=== PATIENT | male | born 1950 | race Caucasian/White ===

== ENCOUNTER 2017-07-26 08:49 | Emergency (ER) | payer MEDICARE, BC, MEDICAID ==
[2017-07-26 08:59] VITALS: BP 114/83
--- NOTE | 2017-07-26 09:30 | EDM.PDOC ---
ED HPI GENERAL MEDICAL PROBLEM - General Chief Complaint: General Stated Complaint: [id number] HAD SURGERY CANT GET DRAINING TO STOP Time Seen by Provider: 07/26/17 09:15 Source of Information: Reports: Patient History Limitations: Reports: No Limitations - History of Present Illness INITIAL COMMENTS - FREE TEXT/NARRATIVE: Patient presents to the ER with c/o moderate drainage from incision site of recent surgery. He states he talked to Dr. Moeller's nurse and was told to continue doing what he has been doing. He states the procedure was completed 9 days ago. He is to see Dr. Moeller on Aug 06. He states he has been having some aching down the leg as well. Denies fever or chills. The drainage has been clear /bloody. Onset: Gradual Onset Date: 07/18/17 Location: Reports: Lower Extremity, Left Quality: Reports: Pressure Severity: Mild Improves with: Reports: None Worsens with: Reports: None Associated Symptoms: Denies: Fever/Chills, Loss of Appetite, Malaise, Nausea/ Vomiting, Shortness of Breath Left Groin Pain Score (Numeric/FACES): 8 - Related Data Allergies Allergy/AdvReac Type Severity Reaction Status Date / Time No Known Allergies Allergy Verified 07/26/17 08:53 Home Meds: Home Meds Aspirin [Adult Low Dose Aspirin EC] 81 mg PO DAILY 05/28/17 [History] Hydrochlorothiazide 25 mg PO DAILY 05/28/17 [History] Multivit-Min/Iron Fum/Folic AC [Zkwye-Yrrgwcn-Qbpqunfd Tablet] 1 tab PO DAILY [History] Simvastatin [Zocor] 20 mg PO BEDTIME 05/28/17 [History] Testosterone [Androgel] 2 pump TOP DAILY 05/28/17 [History] amLODIPine [Norvasc] 10 mg PO DAILY 05/28/17 [History] Potassium 1 tab PO DAILY 07/26/17 [History] Past Medical History HEENT History: Reports: None Cardiovascular History: Reports: High Cholesterol, Hypertension Respiratory History: Reports: None Gastrointestinal History: Reports: None Neurological History: Reports: None Psychiatric History: Reports: None Endocrine/Metabolic History: Reports: None Hematologic History: Reports: None Immunologic History: Reports: None Dermatologic History: Reports: None - Infectious Disease History Infectious Disease History: Reports: None - Past Surgical History HEENT Surgical History: Reports: Cataract Surgery GI Surgical History: Reports: None Other Musculoskeletal Surgeries/Procedures:: knee surgery, hip surgery Dermatological Surgical History: Reports: None Social & Family History - Tobacco Use Smoking Status *Q: Former Smoker Used Tobacco, but Quit: Yes Month Tobacco Last Used: 2014 - Caffeine Use Caffeine Use: Reports: Coffee - Alcohol Use Days Per Week of Alcohol Use: 7 Number of Drinks Per Day: 3 Total Drinks Per Week: 21 - Recreational Drug Use Recreational Drug Use: No ED ROS GENERAL - Review of Systems Review Of Systems: ROS reveals no pertinent complaints other than HPI. ED EXAM, GENERAL - Physical Exam Exam: See Below Exam Limited By: No Limitations General Appearance: Alert, WD/WN, No Apparent Distress Respiratory/Chest: No Respiratory Distress, Lungs Clear, Normal Breath Sounds, No Accessory Muscle Use, Chest Non-Tender Cardiovascular: Normal Peripheral Pulses, Regular Rate, Rhythm, No Edema GI/Abdominal: Normal Bowel Sounds, Soft, Non-Tender Back Exam: Normal Inspection, Full Range of Motion Extremities: Leg Pain, Increased Warmth, Redness, Other (Drainage from incision wound from procedure 9 days ago. Drainage is Seroussanguinous. ) Neurological: Alert, Oriented Psychiatric: Normal Affect, Normal Mood Skin Exam: Warm, Dry, Erythema, Increased Warmth Lymphatic: No Adenopathy Course - Vital Signs Last Recorded V/S: Last Vital Signs Temp 98.2 F 07/26/17 08:58 Pulse 120 H 07/26/17 08:58 Resp 16 07/26/17 08:58 BP 114/83 07/26/17 08:58 Pulse Ox 98 07/26/17 08:58 - Orders/Labs/Meds Orders: Active Orders 24 hr Category Date Time Status CULTURE WOUND [RM] Stat Lab 07/26/17 09:23 Received Departure - Departure Time of Disposition: 09:55 Disposition: Home, Self-Care 01 Condition: Good Clinical Impression: Postoperative wound infection Qualifiers: Encounter type: initial encounter Qualified Code(s): T81.4XXA - Infection following a procedure, initial encounter Cellulitis Qualifiers: Site of cellulitis: extremity Site of cellulitis of extremity: lower extremity Laterality: left Qualified Code(s): L03.116 - Cellulitis of left lower limb - Discharge Information Instructions: Wound Infection, Ovgp-[id number], Cellulitis, Adult, Fiqe-oy-Jfov Forms: ED Department Discharge Additional Instructions: Cephalexin as prescribed Call [facility], Dr. Moeller's office to make an appointment for the morning of 07/27. Tell them Dr. Moeller has requested to see you. Keep clean and dry - My Orders Last 24 Hours: My Active Orders 07/26/17 09:23 CULTURE WOUND [RM] Stat - Assessment/Plan Last 24 Hours: My Active Orders 07/26/17 09:23 CULTURE WOUND [RM] Stat
== END 2017-07-26 10:10 | disposition home or self-care (01) ==
LOC: DL.ED 08:49
DX: T81.4XXA Infection following a procedure, initial encounter (principal); L03.116 Cellulitis of left lower limb; E78.00 Pure hypercholesterolemia, unspecified; I10 Essential (primary) hypertension; Z79.82 Long term (current) use of aspirin; Z79.899 Other long term (current) drug therapy; Z98.49 Cataract extraction status, unspecified eye; Z87.891 Personal history of nicotine dependence
CPT/HCPCS: 87070; 87077; 87186; 99283

== ENCOUNTER 2017-08-01 11:55 | Inpatient (IN) | payer MEDICARE, BC, MEDICAID ==
[2017-08-01] MEDS ORDERED: Ondansetron 4 MG Tab.DIS PO PRN (13:52)
[2017-08-01] MEDS ORDERED: Magnesium Hydroxide 400 MG/5 ML Susp 30 ML Cup PO PRN (13:52)
[2017-08-01] MEDS ORDERED: Morphine 2 MG/ML Syringe IVPUSH PRN (13:52)
[2017-08-01] MEDS ORDERED: Acetaminophen/oxyCODONE 325-5 MG Tab PO PRN (13:57)
[2017-08-01] MEDS: Acetaminophen/oxyCODONE 325-5 MG Tab PO PRN ×2 (14:59→21:28)
[2017-08-01] MEDS: ceFAZolin 2 GM in Premix Bag 1 BAG IV SCH ×2 (14:59→21:29)
--- NOTE | 2017-08-01 15:27 | CR ---
CLINICAL HISTORY: 67-year-old male with left ankle pain. INTERPRETATION: Soft tissue swelling medially with discretely demonstrated smoothly corticated os sub tibiale. Small ankle joint effusion and spurs at the margins of the tibiotalar joint. Large heel spur at the insertion plantar aponeurosis base of the os calcis. No sign of acute or healing fracture/dislocation left ankle.
--- NOTE | 2017-08-01 20:39 | HP ---
CHIEF COMPLAINT: Infected left groin wound, requiring wound VAC, wound dressing, and continued IV antibiotics; requiring admission to the swing-bed. HISTORY OF PRESENTING ILLNESS: Mr. Altagracia Salgado is a 67-year-old male with medical history significant for hypertension, hyperlipidemia, history of total hip arthroplasty back in 2014, and a history of severe peripheral arterial disease requiring left common femoral endarterectomy with patch repair on 07/17/2017. The patient was doing well up until early part of July, where he noticed increased swelling, redness, and bloody discharge from the left thigh from the postsurgical wound, which got worse with movement and walking. He was re-evaluated by Surgery and was actually transferred from [facility] to the Surgery and was noted to have wound infection and then the patient was taken to the OR on 07/27/2017, where he underwent incision and drainage and excisional debridement and irrigation of a left thigh groin wound with wound VAC placement. Surgical findings were infected hematoma with a sinus tracking all the way up to the upper corner of the femoral endarterectomy wound. Surgical cultures grew Staphylococcus aureus, which was methicillin-susceptible and was consulted by Infectious Disease. The patient was placed on a PICC line and continued with IV Zosyn, later changed to cefazolin. ID recommendation was to continue with IV cefazolin for 4 to 6 weeks from 07/27/2017, requiring swing-bed placement. At this time, the patient complains of mild pain at the surgical site which is the left thigh, only 1-2/10 in intensity, which is dull in nature, but most of his pain is on the medial aspect of the left ankle around the medial malleolus; he grades the pain as 6/10 in intensity, which is sharp in nature, aggravated on movement and palpation, relieved partially with pain medication, nonradiating type of pain, not associated with any nausea or vomiting. Denies any chest pains. No shortness of breath. No abdominal pain. The patient claims that this swelling was evaluated by doctors at [facility] and they suggested to continue on IV antibiotics. He denied any similar complaints in the past. The patient denied any history of chest pains on exertion. No history of dyspnea on exertion. No history of orthopnea or paroxysmal nocturnal dyspnea. The patient denied any history of hematemesis, hematochezia, or melenic stools; normal bowel and bladder habits otherwise. The patient has good functional status. REVIEW OF SYSTEMS: A complete review of system including skin, ear, nose, and throat, cardiovascular system, respiratory system, gastrointestinal system, genitourinary system, hematology, oncology, neurology, allergy, immunology, constitutional were all evaluated and were negative except for the above-said notes. PAST MEDICAL HISTORY: Significant for hypertension; hyperlipidemia; prediabetes; peripheral arterial disease, status post left thigh femoral endarterectomy, complicated with wound infection with hematoma; status post total hip arthroplasty on the right side. PAST SURGICAL HISTORY: Significant for total knee replacement on the right; total hip replacement on the right; cataract removal bilaterally; ganglion cyst removal of the right wrist; vascular endarterectomy and femoral embolectomy of the left next. FAMILY HISTORY: Significant for heart disease in his mother, father, and sister and diabetes in his daughter. SOCIAL HISTORY: The patient has a history of smoking in the past, but quit smoking 2 years back. Continues to use alcohol occasionally and most of the nights. ALLERGIES: No known drug allergies. MEDICATIONS: 1. Norvasc 10 mg once a day. 2. Aspirin 81 mg daily. 3. Cefazolin IV q.8 hourly 2 g. 4. Hydrochlorothiazide 25 mg daily. 5. Percocet 5/325 mg every 6 hours as needed for pain. 6. Simvastatin 20 mg daily. 7. Testosterone gel, topical patch. PHYSICAL EXAMINATION: Vital Signs: Temperature of 98, pulse of 85, blood pressure 134/69, respiratory rate of 20, saturating at 100% on room air. General Appearance: The patient is well oriented to time, place, and person. Follows commands spontaneously. Cardiovascular System: S1 and S2 heard with normal intensity. No gallops. Respiratory: Clear to auscultation bilaterally. No wheeze. No crepitations. Abdomen: Soft. Bowel sounds positive. Nontender. No rigidity. Extremities: No edema in bilateral lower extremity, but noted to have swelling erythema and tenderness to the left medial malleolus. Tender to palpation. Pulses felt well. Capillary refill well. Wound VAC noted on the left groin side; no active secretions noted, mild tenderness. Neurology: No gross focal neurological deficit. LABORATORY DATA: As reviewed from [facility] shows sodium 134, potassium 4, chloride 102, bicarb 24.5, glucose 126, creatinine 1, calcium 9.6. WBC 9.28, hemoglobin 12.7, hematocrit 37.4, platelet count 322. ASSESSMENT: 1. Infected left thigh hematoma with associated infections as a complication of left common femoral artery endarterectomy patch done on 07/27/2017. Currently on wound VAC and IV antibiotics, to be continued for next 4 to 6 weeks with IV cefazolin. 2. Left ankle pain, etiology not clear. 3. Hypertension. 4. Hyperlipidemia. 5. Alcohol use. 6. Peripheral arterial disease. PLAN: 1. Wound infection: The patient has a wound infection as a result of infected hematoma, resulting from complication of his left common femoral artery endarterectomy patch. He is status post irrigation and debridement and wound VAC placement. Continue with the wound VAC. Continue with wound cares. Continue with IV antibiotics as recommended by the Infectious Disease team. He is currently on IV cefazolin 2 g IV q.8 hourly and he would need at least 4 to 6 weeks of IV antibiotics with weekly monitoring from Infectious Disease team. Closely follow. 2. Hypertension: He is currently on hydrochlorothiazide; continue the same. His blood pressure seems to be in acceptable range. Try to avoid any hypotensive episodes. 3. Dyslipidemia: He is currently on simvastatin. Continue the same. 4. DVT prophylaxis: We will have him on Lovenox for DVT prophylaxis. 5. Reviewed the labs and medications. Reviewed the charts obtained from [facility]. 6. Code status: The patient wants to be full code. [facility] /[id number]
[2017-08-01] MEDS: Heparin Sodium 5,000 Units/ML Vial SUBCUT SCH (21:01)
[2017-08-01] MEDS: Simvastatin 10 MG Tab PO SCH (21:02)
[2017-08-01] MEDS: Zolpidem 5 MG Tab PO PRN (21:02)
[2017-08-02] MEDS: ceFAZolin 2 GM in Premix Bag 1 BAG IV SCH ×3 (06:08→22:05)
[2017-08-02] MEDS ORDERED: Acetaminophen 325 MG Tab PO ONE (08:04)
[2017-08-02] MEDS: Hydrochlorothiazide 25 MG Tab PO SCH (09:20)
[2017-08-02] MEDS: amLODIPine 5 MG Tab PO SCH (09:21)
[2017-08-02] MEDS: Multivitamins, Therapeutic with Minerals Tab PO SCH (09:22)
[2017-08-02] MEDS: Aspirin 81 MG Tab.EC PO SCH (09:22)
[2017-08-02] MEDS: Heparin Sodium 5,000 Units/ML Vial SUBCUT SCH ×2 (09:23→20:25)
[2017-08-02] MEDS: oxyCODONE 5 MG Tab PO PRN ×2 (12:17→18:44)
--- NOTE | 2017-08-02 16:04 | PN ---
DATE: 08/02/2017 SUBJECTIVE: Phil is a 67-year-old gentleman who had angiography performed earlier this month. The surgeon was unable to enter the left femoral artery because of calcified atherosclerotic material. A direct left endarterectomy was then performed. Phil developed a hematoma at the site. On the day after discharge, he noted drainage from the surgical site and then a wound infection overlying the surgical site. He returned to see the vascular surgeon. The area was sharply debrided and a wound VAC was placed. He was started on IV antibiotics and admitted to swing bed for ongoing management. Over the last 2 days, however, he has developed bilateral swelling of the left ankle with redness and tenderness. Dr. Torres did do a uric acid yesterday and this was unremarkable at 4.8. Additional labs were ordered today and showed a white count of 8000 with 79% neutrophils, 2% bands, 11% lymphocytes. Sed rate was more than 100 and CRP was 14.7. Two new sets of blood cultures were drawn. He has been febrile during this admission. Temperatures over the last 24 hours have been as high as 100.9 and today have been 99.3. PHYSICAL EXAMINATION: General: He is seen in bed. He is in no distress. Vital Signs: Blood pressure 116/78, pulse 80, respiratory rate 14, oxygen saturation 97% on room air, temperature is 99.3, and T-max overnight was 100.3. HEENT: Unremarkable. ENT was clear. Chest: Clear but diminished bilateral breath sounds. Heart: Showed regular rate and rhythm. Abdomen: Soft and benign. Extremities: Showed the calves to be soft and nontender. Examination of the left lower extremity showed bilateral malleolar swelling with overlying redness and tenderness. The calves were soft and nontender. PLAN: The additional labs were ordered including white count with a manual differential, CRP, and a sedimentation rate. Two new sets of blood cultures were drawn. Admission x-rays of the left ankle were unremarkable. We considered an MRI but the inflammation in the ankle is obvious and will wait on an MRI for now. I did speak to the vascular surgeon this morning, but he had nothing to add and nothing to say about the new problem of left ankle. I also with Dr. Fregoso of Infectious Diseases, who has also been following Phil's case. We agreed to see if a tap of the joint could be done. Dr. Ali Wang was consulted and she was able to easily perform an aspiration of the joint. The sample was sent for culture and cell/crystal examination. Phil is scheduled to see Dr. Fregoso next week by Telemedicine. [facility] /[id number] MTDD
--- NOTE | 2017-08-02 17:24 | PCM.CONSN ---
- General Info Date of Service: 08/02/17 Subjective Update: 67 y/o male who had angiography performed earlier this month, subequently developed a wound at the surgical site which was debrided by vascular surgeon and is now on wound vac to the left upper leg. Currently admitted to swing bed for IV antibiotics. Has now developed left ankle pain and swelling. Reports he noticed this starting on Sunday and has progressively worsened. Reports it is very painful to walk on the left ankle, also very tender to touch. - Patient Data Vitals - Most Recent: Last Vital Signs Temp 37.7 C 08/02/17 15:49 Pulse 78 08/02/17 15:49 Resp 20 08/02/17 15:49 BP 121/70 08/02/17 15:49 Pulse Ox 97 08/02/17 15:49 Weight - Most Recent: 84.731 kg I&O - Last 24 Hours: Intake & Output 08/02/17 08/02/17 08/02/17 06:59 14:59 22:59 Intake Total 50 977 Output Total 500 600 Balance -450 377 Lab Results Last 24 Hours: Laboratory Results - last 24 hr 08/02/17 08/02/17 Range/Units 12:20 12:20 WBC 8.0 (5.0-10.0) 10^3/uL Neutrophils % (Manual) 79 % Band Neutrophils % 2 % Lymphocytes % (Manual) 11 % Monocytes % (Manual) 8 % ESR > 100 H (0-15) mm/hr C-Reactive Protein 14.7 H (0.0-1.3) mg/dL Antony Results Last 24 Hours: Microbiology 08/02/17 12:20 Anaerobic Blood Culture - Final Blood - Venous Med Orders - Current: Current Medications Acetaminophen (Tylenol) 650 mg PO Q4H PRN PRN Reason: Pain/Fever Amlodipine Besylate (Norvasc) 10 mg PO DAILY [facility] Last Admin: 08/02/17 09:21 Dose: 10 mg Aspirin (Halfprin) 81 mg PO DAILY [facility] Last Admin: 08/02/17 09:22 Dose: 81 mg Heparin Sodium (Porcine) (Heparin Sodium) 5,000 units SUBCUT Q12HR [facility] Last Admin: 08/02/17 09:23 Dose: 5,000 units Hydrochlorothiazide (Hydrochlorothiazide) 25 mg PO DAILY [facility] Last Admin: 08/02/17 09:20 Dose: 25 mg Cefazolin Sodium/Dextrose 2 gm (/ Premix) 50 mls @ 100 mls/hr IV Q8HR [facility] Last Infusion: 08/02/17 14:45 Dose: Infused Magnesium Hydroxide (Milk Of Magnesia) 30 ml PO Q12H PRN PRN Reason: Constipation Morphine Sulfate (Morphine) 2 mg IVPUSH Q2H PRN PRN Reason: Pain (severe 7-10) Multivitamins/Minerals (Vitamins And Minerals) 1 tab PO DAILY [facility] Last Admin: 08/02/17 09:22 Dose: 1 tab Non-Formulary Medication (Testosterone [Androgel]) 50 mg TOP DAILY [facility] Ondansetron HCl (Zofran Odt) 4 mg PO Q4H PRN PRN Reason: nausea, able to take PO Oxycodone HCl (Oxycodone) 5 mg PO Q6H PRN PRN Reason: Pain (moderate 4-6) Last Admin: 08/02/17 12:17 Dose: 5 mg Oxycodone HCl (Oxycodone) 10 mg PO Q6H PRN PRN Reason: Pain (severe 7-10) Senna/Docusate Sodium (Senna Plus) 1 tab PO BEDTIME PRN PRN Reason: Constipation Simvastatin (Zocor) 20 mg PO BEDTIME [facility] Last Admin: 08/01/17 21:02 Dose: 20 mg Sodium Chloride (Saline Flush) 10 ml IV ASDIRECTED PRN PRN Reason: keep vein open Zolpidem Tartrate (Ambien) 5 mg PO BEDTIME PRN PRN Reason: Sleep Last Admin: 08/01/17 21:02 Dose: 5 mg Discontinued Medications Acetaminophen (Tylenol) 650 mg PO NOW ONE Stop: 08/02/17 08:05 Last Admin: 08/02/17 08:30 Dose: 650 mg Oxycodone/Acetaminophen (Percocet 325-5 Mg) 1 tab PO Q6H PRN PRN Reason: Pain (moderate 4-6) Last Admin: 08/01/17 21:28 Dose: 1 tab Oxycodone/Acetaminophen (Percocet 325-5 Mg) 2 tab PO Q6H PRN PRN Reason: Pain (severe 7-10) - Exam General: Alert, Oriented, No Acute Distress Physical Findings Comments:: Left ankle with swelling present to the ankle joint, mainly at the medial and lateral malleolar areas with erythema present. Very tender to palpation to these areas. Pt is able to actively flex and extend but pain with any type of inversion or eversion motion at the level of the ankle joint. With palpation the entire ankle joint is inflammed. Consult PN Assessment/Plan Procedures: Procedures CARDIOVASCULAR STRESS TEST (05/29/17) CULTURE OTHR SPECIMN AEROBIC (07/26/17) EMERGENCY DEPT VISIT (07/26/17) HT MUSCLE IMAGE SPECT MULT (05/29/17) MRI JNT OF LWR EXTRE W/O DYE (01/27/15) (1) Ankle joint pain SNOMED Code(s): 236885433 Code(s): M25.579 - PAIN IN UNSPECIFIED ANKLE AND JOINTS OF UNSPECIFIED FOOT Current Visit: Yes Problem List Initiated/Reviewed/Updated: Yes Plan: 67 y/o with left ankle pain and swelling with redness. UA from yesterday 4.8. WBC 8, ESR >100, CRP 14.7. xrays of left ankle negative. Today I did prep the left ankle with chlorhexadine prep, injected 2 cc's 1% lidocaine plain for anesthesia, once that was obtained I then used a 20 gauge needle and inserted into the left ankle joint, I then aspirated approx 2 cc's of bloody joint fluid from the left ankle. Due to blood in the specimen we could not evalute the fluid for cloudyness. Cultures were taken and specimen sent to lab. Will await results of the aspirate and go from there.
[2017-08-02] MEDS: Simvastatin 10 MG Tab PO SCH (20:23)
[2017-08-02] MEDS: Zolpidem 5 MG Tab PO PRN (20:24)
[2017-08-03] MEDS: ceFAZolin 2 GM in Premix Bag 1 BAG IV SCH ×3 (06:15→21:35)
[2017-08-03] MEDS: Sodium Chloride 0.9% 10 ML Syringe IV PRN ×2 (07:16→14:38)
[2017-08-03] MEDS: Multivitamins, Therapeutic with Minerals Tab PO SCH (10:00)
[2017-08-03] MEDS: amLODIPine 5 MG Tab PO SCH (10:00)
[2017-08-03] MEDS: Aspirin 81 MG Tab.EC PO SCH (10:00)
[2017-08-03] MEDS: Hydrochlorothiazide 25 MG Tab PO SCH (10:01)
[2017-08-03] MEDS: oxyCODONE 5 MG Tab PO PRN ×2 (10:18→21:34)
[2017-08-03] MEDS: Heparin Sodium 5,000 Units/ML Vial SUBCUT SCH ×2 (10:20→21:35)
[2017-08-03] MEDS: Acetaminophen 325 MG Tab PO PRN (15:15)
[2017-08-03] MEDS: Simvastatin 10 MG Tab PO SCH (21:34)
[2017-08-04] MEDS: ceFAZolin 2 GM in Premix Bag 1 BAG IV SCH ×3 (05:46→21:54)
[2017-08-04] MEDS: Aspirin 81 MG Tab.EC PO SCH (09:37)
[2017-08-04] MEDS: Hydrochlorothiazide 25 MG Tab PO SCH (09:38)
[2017-08-04] MEDS: Heparin Sodium 5,000 Units/ML Vial SUBCUT SCH ×2 (09:38→21:42)
[2017-08-04] MEDS: Multivitamins, Therapeutic with Minerals Tab PO SCH (09:39)
[2017-08-04] MEDS: amLODIPine 5 MG Tab PO SCH (09:39)
[2017-08-04] MEDS: oxyCODONE 5 MG Tab PO PRN ×2 (09:54→21:38)
[2017-08-04] MEDS: Acetaminophen 325 MG Tab PO PRN (09:55)
[2017-08-04] MEDS: Colchicine 0.6 MG Tab PO SCH ×3 (10:12→21:40)
[2017-08-04] MEDS: TESTOSTERONE TOP SCH (10:58)
--- NOTE | 2017-08-04 21:17 | PN ---
DATE: 08/04/2017 We have received the results on the synovial fluid that was obtained in by Dr. Wendy Wang on August 02. Fluid was sent for both culture and for synovial crystal analysis. The synovial fluid culture remains without growth for 2 days. The crystal report shows negatively birefringent needle shaped polarized crystals seen as leukocytic inclusions. These crystals resemble monosodium urate. I called and spoke with Dr. Laird, who is covering hospitalist this weekend to inform him that the report was back. I also sent a message via [employer] to Dr. Federico Fregoso, Infectious Disease, informing him of the results of both the culture and the synovial crystal analysis. Management will be directed by Dr. Laird for these findings. [facility] /[id number] MTDD
[2017-08-04] MEDS: Simvastatin 10 MG Tab PO SCH (21:40)
[2017-08-04] MEDS: Sodium Chloride 0.9% 10 ML Syringe IV PRN ×2 (21:56→22:30)
[2017-08-05] MEDS: ceFAZolin 2 GM in Premix Bag 1 BAG IV SCH ×3 (06:30→22:15)
[2017-08-05] MEDS: Sodium Chloride 0.9% 10 ML Syringe IV PRN ×3 (06:35→13:50)
[2017-08-05] MEDS: Colchicine 0.6 MG Tab PO SCH ×2 (09:25→21:03)
[2017-08-05] MEDS: Aspirin 81 MG Tab.EC PO SCH (09:26)
[2017-08-05] MEDS: amLODIPine 5 MG Tab PO SCH (09:26)
[2017-08-05] MEDS: Heparin Sodium 5,000 Units/ML Vial SUBCUT SCH ×2 (09:26→21:11)
[2017-08-05] MEDS: Hydrochlorothiazide 25 MG Tab PO SCH (09:26)
[2017-08-05] MEDS: TESTOSTERONE TOP SCH (09:28)
[2017-08-05] MEDS: Multivitamins, Therapeutic with Minerals Tab PO SCH (09:28)
[2017-08-05] MEDS: Acetaminophen 325 MG Tab PO PRN (09:29)
[2017-08-05] MEDS ORDERED: Menthol/Methyl Salicylate 85 GM Tube TOP PRN (17:12)
[2017-08-05] MEDS: oxyCODONE 5 MG Tab PO PRN (21:03)
[2017-08-05] MEDS: Simvastatin 10 MG Tab PO SCH (21:05)
[2017-08-05] MEDS: Zolpidem 5 MG Tab PO PRN (21:17)
[2017-08-06] MEDS: ceFAZolin 2 GM in Premix Bag 1 BAG IV SCH ×3 (05:54→21:45)
[2017-08-06] MEDS: Sodium Chloride 0.9% 10 ML Syringe IV PRN (05:55)
[2017-08-06] MEDS: amLODIPine 5 MG Tab PO SCH (08:59)
[2017-08-06] MEDS: Colchicine 0.6 MG Tab PO SCH ×2 (08:59→21:44)
[2017-08-06] MEDS: Heparin Sodium 5,000 Units/ML Vial SUBCUT SCH ×2 (08:59→21:45)
[2017-08-06] MEDS: Aspirin 81 MG Tab.EC PO SCH (08:59)
[2017-08-06] MEDS: Multivitamins, Therapeutic with Minerals Tab PO SCH (08:59)
[2017-08-06] MEDS: Hydrochlorothiazide 25 MG Tab PO SCH (08:59)
[2017-08-06] MEDS: TESTOSTERONE TOP SCH (09:00)
[2017-08-06] MEDS: Acetaminophen 325 MG Tab PO PRN ×2 (09:31→21:42)
[2017-08-06] MEDS: Simvastatin 10 MG Tab PO SCH (21:44)
[2017-08-06] MEDS: Zolpidem 5 MG Tab PO PRN (21:46)
[2017-08-07] MEDS: ceFAZolin 2 GM in Premix Bag 1 BAG IV SCH ×3 (05:58→22:13)
[2017-08-07] MEDS: Acetaminophen 325 MG Tab PO PRN ×2 (09:45→22:10)
[2017-08-07] MEDS: Aspirin 81 MG Tab.EC PO SCH (09:48)
[2017-08-07] MEDS: Colchicine 0.6 MG Tab PO SCH ×2 (09:48→22:09)
[2017-08-07] MEDS: Heparin Sodium 5,000 Units/ML Vial SUBCUT SCH ×2 (09:49→22:12)
[2017-08-07] MEDS: Hydrochlorothiazide 25 MG Tab PO SCH (09:49)
[2017-08-07] MEDS: amLODIPine 5 MG Tab PO SCH (09:49)
[2017-08-07] MEDS: Multivitamins, Therapeutic with Minerals Tab PO SCH (09:50)
[2017-08-07] MEDS: TESTOSTERONE TOP SCH (09:53)
[2017-08-07] MEDS: Sodium Chloride 0.9% 10 ML Syringe IV PRN ×2 (14:07→14:42)
[2017-08-07] MEDS: Zolpidem 5 MG Tab PO PRN (22:09)
[2017-08-07] MEDS: Simvastatin 10 MG Tab PO SCH (22:09)
[2017-08-08] MEDS: ceFAZolin 2 GM in Premix Bag 1 BAG IV SCH ×3 (06:19→21:27)
[2017-08-08] MEDS: Aspirin 81 MG Tab.EC PO SCH (08:37)
[2017-08-08] MEDS: Heparin Sodium 5,000 Units/ML Vial SUBCUT SCH ×2 (08:38→21:25)
[2017-08-08] MEDS: Hydrochlorothiazide 25 MG Tab PO SCH (08:38)
[2017-08-08] MEDS: amLODIPine 5 MG Tab PO SCH (08:39)
[2017-08-08] MEDS: TESTOSTERONE TOP SCH (08:40)
[2017-08-08] MEDS: Multivitamins, Therapeutic with Minerals Tab PO SCH (08:40)
[2017-08-08] MEDS: Colchicine 0.6 MG Tab PO SCH ×2 (08:41→21:24)
[2017-08-08] MEDS: Sodium Chloride 0.9% 10 ML Syringe IV PRN (14:54)
[2017-08-08] MEDS: Acetaminophen 325 MG Tab PO PRN ×2 (15:02→21:26)
[2017-08-08] MEDS: Simvastatin 10 MG Tab PO SCH (21:25)
[2017-08-08] MEDS: Zolpidem 5 MG Tab PO PRN (21:25)
[2017-08-09] MEDS: ceFAZolin 2 GM in Premix Bag 1 BAG IV SCH ×3 (06:56→23:35)
[2017-08-09] MEDS: amLODIPine 5 MG Tab PO SCH (08:45)
[2017-08-09] MEDS: Colchicine 0.6 MG Tab PO SCH ×2 (08:45→23:37)
[2017-08-09] MEDS: Acetaminophen 325 MG Tab PO PRN ×2 (08:47→23:46)
[2017-08-09] MEDS: Aspirin 81 MG Tab.EC PO SCH (08:47)
[2017-08-09] MEDS: Hydrochlorothiazide 25 MG Tab PO SCH (08:47)
[2017-08-09] MEDS: Multivitamins, Therapeutic with Minerals Tab PO SCH (08:47)
[2017-08-09] MEDS: Heparin Sodium 5,000 Units/ML Vial SUBCUT SCH ×2 (08:47→23:38)
[2017-08-09] MEDS: TESTOSTERONE TOP SCH (08:49)
--- NOTE | 2017-08-09 12:57 | PCM.PN ---
- General Info Date of Service: 08/09/17 Subjective Update: 67 y/o male who had angiography performed earlier this month, subequently developed a wound at the surgical site which was debrided by vascular surgeon and is now on wound vac to the left upper leg. He is being admitted to swing bed for IV antibiotics. Last week he developed left ankle and big toe pain and swelling. Ankle aspiration was consistent with gout. He was started on colchicine 0.6 mg twice a day. Today patient stated that his ankle and left big toe swelling are markedly better but are still somewhat swelling and tender when walking and wants to continue the colchicine. He is aware of the side effects of colchicine but he is requesting to continue on it. Patient denies fever, chills, nausea, vomiting, chest pain, shortness breath, headache, abdominal pain, diarrhea, urinary symptoms, any other symptoms or concern. He had bowel movement today and was normal. - Patient Data Vitals - Most Recent: Last Vital Signs Temp 37.2 C 08/09/17 08:57 Pulse 70 08/09/17 08:57 Resp 20 08/09/17 08:57 BP 107/58 L 08/09/17 08:57 Pulse Ox 96 08/09/17 08:57 Weight - Most Recent: 83.37 kg I&O - Last 24 Hours: Intake & Output 08/08/17 08/09/17 08/09/17 22:59 06:59 14:59 Intake Total 339 153 Balance 339 153 Med Orders - Current: Current Medications Acetaminophen (Tylenol) 650 mg PO Q4H PRN PRN Reason: Pain/Fever Last Admin: 08/09/17 08:47 Dose: 650 mg Amlodipine Besylate (Norvasc) 10 mg PO DAILY [facility] Last Admin: 08/09/17 08:45 Dose: 10 mg Aspirin (Halfprin) 81 mg PO DAILY [facility] Last Admin: 08/09/17 08:47 Dose: 81 mg Heparin Sodium (Porcine) (Heparin Sodium) 5,000 units SUBCUT Q12HR [facility] Last Admin: 08/09/17 08:47 Dose: 5,000 units Hydrochlorothiazide (Hydrochlorothiazide) 25 mg PO DAILY [facility] Last Admin: 08/09/17 08:47 Dose: 25 mg Cefazolin Sodium/Dextrose 2 gm (/ Premix) 50 mls @ 100 mls/hr IV Q8HR [facility] Last Admin: 08/09/17 06:56 Dose: 100 mls/hr Magnesium Hydroxide (Milk Of Magnesia) 30 ml PO Q12H PRN PRN Reason: Constipation Methyl Salicylate (Icy Hot Cream) 0 gm TOP TID PRN PRN Reason: Pain Morphine Sulfate (Morphine) 2 mg IVPUSH Q2H PRN PRN Reason: Pain (severe 7-10) Multivitamins/Minerals (Vitamins And Minerals) 1 tab PO DAILY [facility] Last Admin: 08/09/17 08:47 Dose: 1 tab Testosterone 1% Gel (50 Mg Own Med) 50 mg TOP DAILY [facility] Last Admin: 08/09/17 08:49 Dose: 50 mg Ondansetron HCl (Zofran Odt) 4 mg PO Q4H PRN PRN Reason: nausea, able to take PO Oxycodone HCl (Oxycodone) 5 mg PO Q6H PRN PRN Reason: Pain (moderate 4-6) Last Admin: 08/05/17 21:03 Dose: 5 mg Oxycodone HCl (Oxycodone) 10 mg PO Q6H PRN PRN Reason: Pain (severe 7-10) Last Admin: 08/04/17 21:38 Dose: 10 mg Senna/Docusate Sodium (Senna Plus) 1 tab PO BEDTIME PRN PRN Reason: Constipation Last Admin: 08/03/17 21:33 Dose: 1 tab Simvastatin (Zocor) 20 mg PO BEDTIME [facility] Last Admin: 08/08/17 21:25 Dose: 20 mg Sodium Chloride (Saline Flush) 10 ml IV ASDIRECTED PRN PRN Reason: keep vein open Last Admin: 08/08/17 14:54 Dose: 10 ml Zolpidem Tartrate (Ambien) 5 mg PO BEDTIME PRN PRN Reason: Sleep Last Admin: 08/08/17 21:25 Dose: 5 mg Discontinued Medications Acetaminophen (Tylenol) 650 mg PO NOW ONE Stop: 08/02/17 08:05 Last Admin: 08/02/17 08:30 Dose: 650 mg Colchicine (Colcrys) 0.6 mg PO BID [facility] Last Admin: 08/04/17 11:26 Dose: Not Given Colchicine (Colcrys) 0.6 mg PO BID [facility] Last Admin: 08/09/17 08:45 Dose: 0.6 mg Oxycodone/Acetaminophen (Percocet 325-5 Mg) 1 tab PO Q6H PRN PRN Reason: Pain (moderate 4-6) Last Admin: 08/01/17 21:28 Dose: 1 tab Oxycodone/Acetaminophen (Percocet 325-5 Mg) 2 tab PO Q6H PRN PRN Reason: Pain (severe 7-10) - Exam General: Alert, Oriented, Cooperative, No Acute Distress. No: Mild Distress, Moderate Distress, Severe Distress, Sedated, Lethargic, Obtunded HEENT: Pupils Equal, Pupils Reactive, EOMI, Mucous Membr. Moist/[place] Neck: Supple, Trachea Midline, No JVD Lungs: Clear to Auscultation, Normal Respiratory Effort Cardiovascular: Regular Rate, Regular Rhythm GI/Abdominal Exam: Normal Bowel Sounds, Soft, Non-Tender, No Organomegaly, No Distention, No Abnormal Bruit, No Mass. No: Distended, Guarding, Rigid, Rebound (Male) Exam: Deferred Back Exam: Normal Inspection, Full Range of Motion Extremities: Normal Inspection, Normal Range of Motion, Non-Tender, No Pedal Edema, Normal Capillary Refill Skin: Other (Left groin wound has wound VAC on it and I did not appreciate any erythema or swelling or any signs of infection of the skin.) Wound/Incisions: Healing Well Neurological: No New Focal Deficit Psy/Mental Status: Alert, Normal Affect, Normal Mood - Problem List Review Problem List Initiated/Reviewed/Updated: Yes - My Orders Last 24 Hours: My Active Orders 08/14/17 06:00 ALANINE AMINOTRANSFERASE,ALT [CHEM] WEEKLY CBC WITH AUTO DIFF [HEME] WEEKLY CREATININE W/GFR [CHEM] WEEKLY CRP [C-REACTIVE PROTEIN] [CHEM] WEEKLY ESR [SEDIMENTATION RATE MANUAL] [HEME] WEEKLY 08/21/17 06:00 ALANINE AMINOTRANSFERASE,ALT [CHEM] WEEKLY CBC WITH AUTO DIFF [HEME] WEEKLY CREATININE W/GFR [CHEM] WEEKLY CRP [C-REACTIVE PROTEIN] [CHEM] WEEKLY ESR [SEDIMENTATION RATE MANUAL] [HEME] WEEKLY - Plan Plan:: Assessment and plan Infected left thigh hematoma status post left common femoral artery endarterectomy patch on 07/27/17 Continue wound VAC care and IV cefazolin Continue to follow with ID recommendation Opiate for pain as per order Acute gout Continue colchicine 0.6 mg twice a day for other 2 days Essential hypertension Continue hydrochlorothiazide and amlodipine Dyslipidemia Continue simvastatin Heparin for DVT prophylaxis
[2017-08-09] MEDS: Sodium Chloride 0.9% 10 ML Syringe IV PRN ×2 (14:29→23:34)
[2017-08-09] MEDS: Simvastatin 10 MG Tab PO SCH (23:42)
[2017-08-10] MEDS: Sodium Chloride 0.9% 10 ML Syringe IV PRN ×5 (00:09→22:01)
[2017-08-10] MEDS: ceFAZolin 2 GM in Premix Bag 1 BAG IV SCH ×3 (06:00→22:01)
[2017-08-10] MEDS: Aspirin 81 MG Tab.EC PO SCH (08:21)
[2017-08-10] MEDS: Multivitamins, Therapeutic with Minerals Tab PO SCH (08:21)
[2017-08-10] MEDS: amLODIPine 5 MG Tab PO SCH (08:22)
[2017-08-10] MEDS: Heparin Sodium 5,000 Units/ML Vial SUBCUT SCH ×2 (08:22→21:00)
[2017-08-10] MEDS: Hydrochlorothiazide 25 MG Tab PO SCH (08:22)
[2017-08-10] MEDS: Colchicine 0.6 MG Tab PO SCH ×2 (08:22→21:01)
[2017-08-10] MEDS: Acetaminophen 325 MG Tab PO PRN ×3 (08:24→21:00)
[2017-08-10] MEDS: TESTOSTERONE TOP SCH (08:25)
[2017-08-10] MEDS: Simvastatin 10 MG Tab PO SCH (21:00)
[2017-08-10] MEDS: Zolpidem 5 MG Tab PO PRN (21:06)
[2017-08-11] MEDS: Sodium Chloride 0.9% 10 ML Syringe IV PRN ×5 (06:15→22:07)
[2017-08-11] MEDS: ceFAZolin 2 GM in Premix Bag 1 BAG IV SCH ×3 (06:15→22:08)
[2017-08-11] MEDS: Multivitamins, Therapeutic with Minerals Tab PO SCH (09:54)
[2017-08-11] MEDS: Heparin Sodium 5,000 Units/ML Vial SUBCUT SCH ×2 (09:54→21:05)
[2017-08-11] MEDS: Aspirin 81 MG Tab.EC PO SCH (09:54)
[2017-08-11] MEDS: amLODIPine 5 MG Tab PO SCH (09:55)
[2017-08-11] MEDS: Colchicine 0.6 MG Tab PO SCH (09:55)
[2017-08-11] MEDS: Hydrochlorothiazide 25 MG Tab PO SCH (09:55)
[2017-08-11] MEDS: Acetaminophen 325 MG Tab PO PRN ×2 (10:15→21:04)
[2017-08-11] MEDS: TESTOSTERONE TOP SCH (10:16)
[2017-08-11] MEDS: Allopurinol 300 MG Tab PO SCH (18:42)
[2017-08-11] MEDS: Zolpidem 5 MG Tab PO PRN (21:03)
[2017-08-11] MEDS: Simvastatin 10 MG Tab PO SCH (21:04)
[2017-08-12] MEDS: ceFAZolin 2 GM in Premix Bag 1 BAG IV SCH ×3 (05:44→21:16)
[2017-08-12] MEDS: Sodium Chloride 0.9% 10 ML Syringe IV PRN ×4 (05:48→21:17)
[2017-08-12] MEDS: Allopurinol 300 MG Tab PO SCH (08:25)
[2017-08-12] MEDS: Aspirin 81 MG Tab.EC PO SCH (09:23)
[2017-08-12] MEDS: Hydrochlorothiazide 25 MG Tab PO SCH (09:23)
[2017-08-12] MEDS: Multivitamins, Therapeutic with Minerals Tab PO SCH (09:23)
[2017-08-12] MEDS: Acetaminophen 325 MG Tab PO PRN (09:24)
[2017-08-12] MEDS: Heparin Sodium 5,000 Units/ML Vial SUBCUT SCH ×2 (09:25→21:15)
[2017-08-12] MEDS: TESTOSTERONE TOP SCH (09:26)
[2017-08-12] MEDS: amLODIPine 5 MG Tab PO SCH (10:00)
[2017-08-12] MEDS ORDERED: Acetaminophen 325 MG Tab PO PRN (18:29)
[2017-08-12] MEDS: Simvastatin 10 MG Tab PO SCH (21:16)
[2017-08-12] MEDS: Acetaminophen 325 MG Tab PO SCH (21:16)
[2017-08-12] MEDS: Zolpidem 5 MG Tab PO PRN (21:24)
[2017-08-13] MEDS: ceFAZolin 2 GM in Premix Bag 1 BAG IV SCH ×3 (05:51→21:56)
[2017-08-13] MEDS: amLODIPine 5 MG Tab PO SCH (08:55)
[2017-08-13] MEDS: Aspirin 81 MG Tab.EC PO SCH (08:55)
[2017-08-13] MEDS: Multivitamins, Therapeutic with Minerals Tab PO SCH (08:56)
[2017-08-13] MEDS: TESTOSTERONE TOP SCH (08:56)
[2017-08-13] MEDS: Acetaminophen 325 MG Tab PO SCH ×2 (08:56→21:51)
[2017-08-13] MEDS: Hydrochlorothiazide 25 MG Tab PO SCH (08:56)
[2017-08-13] MEDS: Heparin Sodium 5,000 Units/ML Vial SUBCUT SCH ×2 (08:56→21:54)
[2017-08-13] MEDS: Allopurinol 300 MG Tab PO SCH (08:56)
[2017-08-13] MEDS: Simvastatin 10 MG Tab PO SCH (21:54)
[2017-08-13] MEDS: Zolpidem 5 MG Tab PO PRN (21:55)
[2017-08-14] MEDS: ceFAZolin 2 GM in Premix Bag 1 BAG IV SCH ×3 (06:31→22:05)
[2017-08-14] MEDS: amLODIPine 5 MG Tab PO SCH (08:44)
[2017-08-14] MEDS: Multivitamins, Therapeutic with Minerals Tab PO SCH (08:44)
[2017-08-14] MEDS: Heparin Sodium 5,000 Units/ML Vial SUBCUT SCH ×2 (08:45→22:04)
[2017-08-14] MEDS: Allopurinol 300 MG Tab PO SCH (08:45)
[2017-08-14] MEDS: Aspirin 81 MG Tab.EC PO SCH (08:45)
[2017-08-14] MEDS: Hydrochlorothiazide 25 MG Tab PO SCH (08:45)
[2017-08-14] MEDS: Acetaminophen 325 MG Tab PO SCH ×2 (08:46→22:02)
[2017-08-14] MEDS: TESTOSTERONE TOP SCH (08:47)
[2017-08-14] MEDS: Sodium Chloride 0.9% 10 ML Syringe IV PRN (13:46)
[2017-08-14] MEDS: Simvastatin 10 MG Tab PO SCH (22:02)
[2017-08-15] MEDS: ceFAZolin 2 GM in Premix Bag 1 BAG IV SCH ×3 (06:27→22:03)
[2017-08-15] MEDS: TESTOSTERONE TOP SCH (09:30)
[2017-08-15] MEDS: amLODIPine 5 MG Tab PO SCH (09:34)
[2017-08-15] MEDS: Multivitamins, Therapeutic with Minerals Tab PO SCH (09:35)
[2017-08-15] MEDS: Aspirin 81 MG Tab.EC PO SCH (09:36)
[2017-08-15] MEDS: Allopurinol 300 MG Tab PO SCH (09:36)
[2017-08-15] MEDS: Hydrochlorothiazide 25 MG Tab PO SCH (09:36)
[2017-08-15] MEDS: Acetaminophen 325 MG Tab PO SCH ×2 (09:37→22:04)
[2017-08-15] MEDS: Heparin Sodium 5,000 Units/ML Vial SUBCUT SCH ×2 (09:38→22:03)
[2017-08-15] MEDS: Sodium Chloride 0.9% 10 ML Syringe IV PRN (13:15)
[2017-08-15] MEDS: Zolpidem 5 MG Tab PO PRN (22:03)
[2017-08-15] MEDS: Simvastatin 10 MG Tab PO SCH (22:03)
[2017-08-16] MEDS: ceFAZolin 2 GM in Premix Bag 1 BAG IV SCH ×3 (06:23→21:30)
[2017-08-16] MEDS: Aspirin 81 MG Tab.EC PO SCH (09:34)
[2017-08-16] MEDS: Heparin Sodium 5,000 Units/ML Vial SUBCUT SCH ×2 (09:34→21:19)
[2017-08-16] MEDS: Hydrochlorothiazide 25 MG Tab PO SCH (09:35)
[2017-08-16] MEDS: amLODIPine 5 MG Tab PO SCH (09:35)
[2017-08-16] MEDS: Multivitamins, Therapeutic with Minerals Tab PO SCH (09:36)
[2017-08-16] MEDS: Acetaminophen 325 MG Tab PO SCH ×2 (09:38→21:21)
[2017-08-16] MEDS: Allopurinol 300 MG Tab PO SCH (09:42)
[2017-08-16] MEDS: TESTOSTERONE TOP SCH (09:44)
[2017-08-16] MEDS: Sodium Chloride 0.9% 10 ML Syringe IV PRN ×3 (13:36→22:04)
[2017-08-16] MEDS: Simvastatin 10 MG Tab PO SCH (21:20)
[2017-08-16] MEDS: Zolpidem 5 MG Tab PO PRN (21:27)
[2017-08-17] MEDS: Sodium Chloride 0.9% 10 ML Syringe IV PRN ×3 (05:43→21:28)
[2017-08-17] MEDS: ceFAZolin 2 GM in Premix Bag 1 BAG IV SCH ×3 (05:43→21:29)
[2017-08-17] MEDS: Heparin Sodium 5,000 Units/ML Vial SUBCUT SCH ×2 (08:38→21:02)
[2017-08-17] MEDS: Aspirin 81 MG Tab.EC PO SCH (08:38)
[2017-08-17] MEDS: TESTOSTERONE TOP SCH (08:38)
[2017-08-17] MEDS: Multivitamins, Therapeutic with Minerals Tab PO SCH (08:38)
[2017-08-17] MEDS: Acetaminophen 325 MG Tab PO SCH ×2 (08:39→21:00)
[2017-08-17] MEDS: amLODIPine 5 MG Tab PO SCH (08:39)
[2017-08-17] MEDS: Hydrochlorothiazide 25 MG Tab PO SCH (08:39)
[2017-08-17] MEDS: Allopurinol 300 MG Tab PO SCH (08:39)
--- NOTE | 2017-08-17 11:14 | PCM.PN ---
- General Info Date of Service: 08/17/17 Admission Dx/Problem (Free Text): Left groin wound Subjective Update: Feeling well, pain is controlled The swelling of the knee and toes is better. Up and ambulating - Review of Systems General: Reports: Weakness. Denies: Fever Pulmonary: Denies: Shortness of Breath Cardiovascular: Denies: Chest Pain Gastrointestinal: Denies: Abdominal Pain Genitourinary: Denies: Dysuria - Patient Data Vitals - Most Recent: Last Vital Signs Temp 36.7 C 08/17/17 07:00 Pulse 70 08/17/17 07:00 Resp 20 08/17/17 07:00 BP 114/66 08/17/17 08:39 Pulse Ox 99 08/17/17 07:00 Weight - Most Recent: 83.37 kg I&O - Last 24 Hours: Intake & Output 08/16/17 08/17/17 08/17/17 22:59 06:59 14:59 Intake Total 50 350 Balance 50 350 Med Orders - Current: Current Medications Acetaminophen (Tylenol) 650 mg PO Q6H PRN PRN Reason: Pain/Fever Acetaminophen (Tylenol) 650 mg PO BID [facility] Last Admin: 08/17/17 08:39 Dose: 650 mg Allopurinol (Zyloprim) 300 mg PO WITHBREAKFAST [facility] Last Admin: 08/17/17 08:39 Dose: 300 mg Amlodipine Besylate (Norvasc) 10 mg PO DAILY [facility] Last Admin: 08/17/17 08:39 Dose: 10 mg Aspirin (Halfprin) 81 mg PO DAILY [facility] Last Admin: 08/17/17 08:38 Dose: 81 mg Heparin Sodium (Porcine) (Heparin Sodium) 5,000 units SUBCUT Q12HR [facility] Last Admin: 08/17/17 08:38 Dose: 5,000 units Hydrochlorothiazide (Hydrochlorothiazide) 25 mg PO DAILY [facility] Last Admin: 08/17/17 08:39 Dose: 25 mg Cefazolin Sodium/Dextrose 2 gm (/ Premix) 50 mls @ 100 mls/hr IV Q8HR [facility] Last Infusion: 08/17/17 06:27 Dose: Infused Magnesium Hydroxide (Milk Of Magnesia) 30 ml PO Q12H PRN PRN Reason: Constipation Methyl Salicylate (Icy Hot Cream) 0 gm TOP TID PRN PRN Reason: Pain Morphine Sulfate (Morphine) 2 mg IVPUSH Q2H PRN PRN Reason: Pain (severe 7-10) Multivitamins/Minerals (Vitamins And Minerals) 1 tab PO DAILY [facility] Last Admin: 08/17/17 08:38 Dose: 1 tab Testosterone 1% Gel (50 Mg Own Med) 50 mg TOP DAILY [facility] Last Admin: 08/17/17 08:38 Dose: 50 mg Ondansetron HCl (Zofran Odt) 4 mg PO Q4H PRN PRN Reason: nausea, able to take PO Oxycodone HCl (Oxycodone) 5 mg PO Q6H PRN PRN Reason: Pain (moderate 4-6) Last Admin: 08/05/17 21:03 Dose: 5 mg Senna/Docusate Sodium (Senna Plus) 1 tab PO BEDTIME PRN PRN Reason: Constipation Last Admin: 08/03/17 21:33 Dose: 1 tab Simvastatin (Zocor) 20 mg PO BEDTIME [facility] Last Admin: 08/16/17 21:20 Dose: 20 mg Sodium Chloride (Saline Flush) 10 ml IV ASDIRECTED PRN PRN Reason: keep vein open Last Admin: 08/17/17 05:43 Dose: 10 ml Zolpidem Tartrate (Ambien) 5 mg PO BEDTIME PRN PRN Reason: Sleep Last Admin: 08/16/17 21:27 Dose: 5 mg Discontinued Medications Acetaminophen (Tylenol) 650 mg PO NOW ONE Stop: 08/02/17 08:05 Last Admin: 08/02/17 08:30 Dose: 650 mg Acetaminophen (Tylenol) 650 mg PO Q4H PRN PRN Reason: Pain/Fever Last Admin: 08/12/17 09:24 Dose: 650 mg Colchicine (Colcrys) 0.6 mg PO BID [facility] Last Admin: 08/04/17 11:26 Dose: Not Given Colchicine (Colcrys) 0.6 mg PO BID [facility] Last Admin: 08/09/17 08:45 Dose: 0.6 mg Colchicine (Colcrys) 0.6 mg PO BID [facility] Stop: 08/11/17 09:01 Last Admin: 08/11/17 09:55 Dose: 0.6 mg Oxycodone HCl (Oxycodone) 10 mg PO Q6H PRN PRN Reason: Pain (severe 7-10) Last Admin: 08/04/17 21:38 Dose: 10 mg Oxycodone/Acetaminophen (Percocet 325-5 Mg) 1 tab PO Q6H PRN PRN Reason: Pain (moderate 4-6) Last Admin: 08/01/17 21:28 Dose: 1 tab Oxycodone/Acetaminophen (Percocet 325-5 Mg) 2 tab PO Q6H PRN PRN Reason: Pain (severe 7-10) - Exam General: Alert, Oriented Lungs: Clear to Auscultation, Normal Respiratory Effort Cardiovascular: Regular Rate, Regular Rhythm GI/Abdominal Exam: Normal Bowel Sounds, Soft, Other (Obese) Extremities: No Pedal Edema Skin: Warm, Dry Psy/Mental Status: Alert, Normal Affect, Normal Mood - Problem List & Annotations (1) Postoperative wound infection SNOMED Code(s): 25676659, 115376760 Code(s): T81.4XXA - INFECTION FOLLOWING A PROCEDURE, INITIAL ENCOUNTER Status: Acute Current Visit: No Qualifiers: Encounter type: initial encounter Qualified Code(s): T81.4XXA - Infection following a procedure, initial encounter - Problem List Review Problem List Initiated/Reviewed/Updated: Yes - My Orders Last 24 Hours: My Active Orders 08/20/17 05:15 BASIC METABOLIC PANEL,BMP [CHEM] AM CBC WITH AUTO DIFF [HEME] AM - Plan Plan:: Assessment and plan Infected left thigh hematoma status post left common femoral artery endarterectomy patch on 07/27/17 Continue wound VAC care and IV cefazolin Continue to follow with ID recommendation Pain control with Scheduled Tylenol as needed IV morphine, Tylenol, oxycodone Acute gout improved stop hctz Essential hypertension Continue amlodipine Stop hydrochlorothiazide with concern of gout Dyslipidemia Continue simvastatin Heparin for DVT prophylaxis
[2017-08-17] MEDS: Zolpidem 5 MG Tab PO PRN (21:00)
[2017-08-17] MEDS: Simvastatin 10 MG Tab PO SCH (21:00)
[2017-08-18] MEDS: Sodium Chloride 0.9% 10 ML Syringe IV PRN ×3 (05:28→14:26)
[2017-08-18] MEDS: ceFAZolin 2 GM in Premix Bag 1 BAG IV SCH ×3 (05:29→21:38)
[2017-08-18] MEDS: Acetaminophen 325 MG Tab PO SCH ×2 (08:43→21:01)
[2017-08-18] MEDS: TESTOSTERONE TOP SCH (08:43)
[2017-08-18] MEDS: amLODIPine 5 MG Tab PO SCH (08:44)
[2017-08-18] MEDS: Multivitamins, Therapeutic with Minerals Tab PO SCH (08:46)
[2017-08-18] MEDS: Aspirin 81 MG Tab.EC PO SCH (08:46)
[2017-08-18] MEDS: Allopurinol 300 MG Tab PO SCH (08:46)
[2017-08-18] MEDS: Heparin Sodium 5,000 Units/ML Vial SUBCUT SCH ×2 (08:46→21:00)
[2017-08-18] MEDS: Simvastatin 10 MG Tab PO SCH (21:01)
[2017-08-18] MEDS: Zolpidem 5 MG Tab PO PRN (21:08)
[2017-08-19] MEDS: ceFAZolin 2 GM in Premix Bag 1 BAG IV SCH ×3 (06:10→21:16)
[2017-08-19] MEDS: Aspirin 81 MG Tab.EC PO SCH (09:00)
[2017-08-19] MEDS: Acetaminophen 325 MG Tab PO SCH ×2 (09:00→21:11)
[2017-08-19] MEDS: Allopurinol 300 MG Tab PO SCH (09:00)
[2017-08-19] MEDS: Multivitamins, Therapeutic with Minerals Tab PO SCH (09:00)
[2017-08-19] MEDS: amLODIPine 5 MG Tab PO SCH (09:01)
[2017-08-19] MEDS: Heparin Sodium 5,000 Units/ML Vial SUBCUT SCH ×2 (09:03→21:12)
[2017-08-19] MEDS: TESTOSTERONE TOP SCH (09:04)
[2017-08-19] MEDS: Sodium Chloride 0.9% 10 ML Syringe IV PRN (14:11)
[2017-08-19] MEDS: Simvastatin 10 MG Tab PO SCH (21:12)
[2017-08-19] MEDS: Zolpidem 5 MG Tab PO PRN (21:13)
[2017-08-20] MEDS: ceFAZolin 2 GM in Premix Bag 1 BAG IV SCH ×3 (06:26→22:19)
[2017-08-20 07:14] LABS: CHLORIDE,CL 101 mmol/L (101-111); SODIUM,NA 135 mmol/L (135-145)
[2017-08-20] MEDS: Heparin Sodium 5,000 Units/ML Vial SUBCUT SCH ×2 (08:47→22:16)
[2017-08-20] MEDS: amLODIPine 5 MG Tab PO SCH (08:47)
[2017-08-20] MEDS: Acetaminophen 325 MG Tab PO SCH ×2 (08:47→22:17)
[2017-08-20] MEDS: Multivitamins, Therapeutic with Minerals Tab PO SCH (08:47)
[2017-08-20] MEDS: Aspirin 81 MG Tab.EC PO SCH (08:47)
[2017-08-20] MEDS: Allopurinol 300 MG Tab PO SCH (08:47)
[2017-08-20] MEDS: TESTOSTERONE TOP SCH (08:50)
--- NOTE | 2017-08-20 16:57 | PCM.PN ---
- General Info Date of Service: 08/20/17 Admission Dx/Problem (Free Text): Left groin wound Subjective Update: Feeling well, pain is controlled He is up and ambulating, The swelling of the knee and toes is better. Feeling good. Functional Status: Reports: Tolerating Diet, Ambulating - Review of Systems General: Denies: Fever, Weakness Pulmonary: Denies: Shortness of Breath Cardiovascular: Denies: Chest Pain - Patient Data Vitals - Most Recent: Last Vital Signs Temp 36.7 C 08/20/17 15:19 Pulse 74 08/20/17 15:19 Resp 20 08/20/17 15:19 BP 143/76 H 08/20/17 15:19 Pulse Ox 99 08/20/17 15:19 Weight - Most Recent: 83.37 kg I&O - Last 24 Hours: Intake & Output 08/20/17 08/20/17 08/20/17 06:59 14:59 22:59 Intake Total 652 Balance 652 Lab Results Last 24 Hours: Laboratory Results - last 24 hr 08/20/17 08/20/17 Range/Units 06:30 06:30 WBC 4.8 L (5.0-10.0) 10^3/uL RBC 3.97 L (4.6-6.2) 10^6/uL Hgb 12.7 L (14.0-18.0) g/dL Hct 38.8 L (40.0-54.0) % MCV 97.7 (80-100) fL MCH 32.0 (27.0-34.0) pg MCHC 32.7 L (33.0-35.0) g/dL Plt Count 312 (150-450) 10^3/uL Neut % (Auto) 61.0 (42.2-75.2) % Lymph % (Auto) 26.3 (20.5-50.1) % [place] % (Auto) 12.3 H (2-8) % Eos % (Auto) 0.0 L (1.0-3.0) % Baso % (Auto) 0.4 (0.0-1.0) % Sodium 135 (135-145) mmol/L Potassium 4.7 (3.6-5.0) mmol/L Chloride 101 (101-111) mmol/L Carbon Dioxide 27.0 (21.0-31.0) mmol/L Anion Gap 11.7 BUN 14 (7-18) mg/dL Creatinine 0.9 (0.6-1.3) mg/dL Est Cr Clr Drug Dosing 90.06 mL/min Estimated GFR (MDRD) > 60 Glucose 109 H (74-105) mg/dL Calcium 9.5 (8.4-10.2) mg/dl Med Orders - Current: Current Medications Acetaminophen (Tylenol) 650 mg PO Q6H PRN PRN Reason: Pain/Fever Acetaminophen (Tylenol) 650 mg PO BID [facility] Last Admin: 08/20/17 08:47 Dose: 650 mg Allopurinol (Zyloprim) 300 mg PO WITHBREAKFAST [facility] Last Admin: 08/20/17 08:47 Dose: 300 mg Amlodipine Besylate (Norvasc) 10 mg PO DAILY [facility] Last Admin: 08/20/17 08:47 Dose: 10 mg Aspirin (Halfprin) 81 mg PO DAILY [facility] Last Admin: 08/20/17 08:47 Dose: 81 mg Heparin Sodium (Porcine) (Heparin Sodium) 5,000 units SUBCUT Q12HR [facility] Last Admin: 08/20/17 08:47 Dose: 5,000 units Cefazolin Sodium/Dextrose 2 gm (/ Premix) 50 mls @ 100 mls/hr IV Q8HR [facility] Last Admin: 08/20/17 13:46 Dose: 100 mls/hr Magnesium Hydroxide (Milk Of Magnesia) 30 ml PO Q12H PRN PRN Reason: Constipation Methyl Salicylate (Icy Hot Cream) 0 gm TOP TID PRN PRN Reason: Pain Morphine Sulfate (Morphine) 2 mg IVPUSH Q2H PRN PRN Reason: Pain (severe 7-10) Multivitamins/Minerals (Vitamins And Minerals) 1 tab PO DAILY [facility] Last Admin: 08/20/17 08:47 Dose: 1 tab Testosterone 1% Gel (50 Mg Own Med) 50 mg TOP DAILY [facility] Last Admin: 08/20/17 08:50 Dose: 50 mg Ondansetron HCl (Zofran Odt) 4 mg PO Q4H PRN PRN Reason: nausea, able to take PO Oxycodone HCl (Oxycodone) 5 mg PO Q6H PRN PRN Reason: Pain (moderate 4-6) Last Admin: 08/05/17 21:03 Dose: 5 mg Senna/Docusate Sodium (Senna Plus) 1 tab PO BEDTIME PRN PRN Reason: Constipation Last Admin: 08/03/17 21:33 Dose: 1 tab Simvastatin (Zocor) 20 mg PO BEDTIME [facility] Last Admin: 08/19/17 21:12 Dose: 20 mg Sodium Chloride (Saline Flush) 10 ml IV ASDIRECTED PRN PRN Reason: keep vein open Last Admin: 08/19/17 14:11 Dose: 10 ml Zolpidem Tartrate (Ambien) 5 mg PO BEDTIME PRN PRN Reason: Sleep Last Admin: 08/19/17 21:13 Dose: 5 mg Discontinued Medications Acetaminophen (Tylenol) 650 mg PO NOW ONE Stop: 08/02/17 08:05 Last Admin: 08/02/17 08:30 Dose: 650 mg Acetaminophen (Tylenol) 650 mg PO Q4H PRN PRN Reason: Pain/Fever Last Admin: 08/12/17 09:24 Dose: 650 mg Colchicine (Colcrys) 0.6 mg PO BID [facility] Last Admin: 08/04/17 11:26 Dose: Not Given Colchicine (Colcrys) 0.6 mg PO BID [facility] Last Admin: 08/09/17 08:45 Dose: 0.6 mg Colchicine (Colcrys) 0.6 mg PO BID [facility] Stop: 08/11/17 09:01 Last Admin: 08/11/17 09:55 Dose: 0.6 mg Hydrochlorothiazide (Hydrochlorothiazide) 25 mg PO DAILY [facility] Last Admin: 08/17/17 08:39 Dose: 25 mg Oxycodone HCl (Oxycodone) 10 mg PO Q6H PRN PRN Reason: Pain (severe 7-10) Last Admin: 08/04/17 21:38 Dose: 10 mg Oxycodone/Acetaminophen (Percocet 325-5 Mg) 1 tab PO Q6H PRN PRN Reason: Pain (moderate 4-6) Last Admin: 08/01/17 21:28 Dose: 1 tab Oxycodone/Acetaminophen (Percocet 325-5 Mg) 2 tab PO Q6H PRN PRN Reason: Pain (severe 7-10) - Exam General: Alert, Oriented Neck: Supple Lungs: Clear to Auscultation, Normal Respiratory Effort Cardiovascular: Regular Rate, Regular Rhythm Extremities: No: Pedal Edema Skin: Other (Left groin wound with wound VAC applied) Psy/Mental Status: Alert, Normal Affect, Normal Mood - Problem List & Annotations (1) Postoperative wound infection SNOMED Code(s): 70907883 Code(s): T81.4XXA - INFECTION FOLLOWING A PROCEDURE, INITIAL ENCOUNTER Status: Acute Current Visit: No Qualifiers: Encounter type: initial encounter Qualified Code(s): T81.4XXA - Infection following a procedure, initial encounter - Problem List Review Problem List Initiated/Reviewed/Updated: Yes - Plan Plan:: Assessment and plan Infected left thigh hematoma status post left common femoral artery endarterectomy patch on 07/27/17 Continue wound VAC care and IV cefazolin Continue to follow with ID recommendation Pain control with Scheduled Tylenol as needed IV morphine, Tylenol, oxycodone Acute gout improved stopped hctz Essential hypertension Continue amlodipine Stopped hydrochlorothiazide with concern of gout Dyslipidemia Continue simvastatin Heparin for DVT prophylaxis
[2017-08-20] MEDS: Simvastatin 10 MG Tab PO SCH (22:17)
[2017-08-20] MEDS: Zolpidem 5 MG Tab PO PRN (22:19)
[2017-08-21] MEDS: ceFAZolin 2 GM in Premix Bag 1 BAG IV SCH ×3 (06:48→21:28)
[2017-08-21] MEDS: amLODIPine 5 MG Tab PO SCH (08:48)
[2017-08-21] MEDS: Aspirin 81 MG Tab.EC PO SCH (08:49)
[2017-08-21] MEDS: Multivitamins, Therapeutic with Minerals Tab PO SCH (08:49)
[2017-08-21] MEDS: Acetaminophen 325 MG Tab PO SCH ×2 (08:49→21:26)
[2017-08-21] MEDS: Heparin Sodium 5,000 Units/ML Vial SUBCUT SCH ×2 (08:50→21:25)
[2017-08-21] MEDS: TESTOSTERONE TOP SCH (08:50)
[2017-08-21] MEDS: Allopurinol 300 MG Tab PO SCH (08:50)
[2017-08-21] MEDS: Zolpidem 5 MG Tab PO PRN (21:28)
[2017-08-21] MEDS: Simvastatin 10 MG Tab PO SCH (21:28)
[2017-08-22] MEDS: ceFAZolin 2 GM in Premix Bag 1 BAG IV SCH ×3 (06:39→22:15)
[2017-08-22] MEDS: Allopurinol 300 MG Tab PO SCH (07:57)
[2017-08-22] MEDS: Heparin Sodium 5,000 Units/ML Vial SUBCUT SCH ×2 (07:59→21:59)
[2017-08-22] MEDS: Aspirin 81 MG Tab.EC PO SCH (07:59)
[2017-08-22] MEDS: amLODIPine 5 MG Tab PO SCH (07:59)
[2017-08-22] MEDS: Multivitamins, Therapeutic with Minerals Tab PO SCH (07:59)
[2017-08-22] MEDS: Acetaminophen 325 MG Tab PO SCH ×2 (08:00→21:59)
[2017-08-22] MEDS: TESTOSTERONE TOP SCH (08:00)
--- NOTE | 2017-08-22 11:26 | PCM.SN ---
- Free Text/Narrative Note: had appt. with dr. Fregoso tapering prednisone was suggested for gout, continue IV Abx
[2017-08-22] MEDS: predniSONE 20 MG Tab PO SCH (12:39)
[2017-08-22] MEDS: Sodium Chloride 0.9% 10 ML Syringe IV PRN ×2 (14:11→22:14)
[2017-08-22] MEDS: Simvastatin 10 MG Tab PO SCH (21:59)
[2017-08-22] MEDS: Zolpidem 5 MG Tab PO PRN (22:13)
[2017-08-23] MEDS: Sodium Chloride 0.9% 10 ML Syringe IV PRN ×3 (06:04→21:49)
[2017-08-23] MEDS: ceFAZolin 2 GM in Premix Bag 1 BAG IV SCH ×3 (06:05→21:18)
[2017-08-23] MEDS: Allopurinol 300 MG Tab PO SCH (08:23)
[2017-08-23] MEDS: predniSONE 20 MG Tab PO SCH (08:24)
[2017-08-23] MEDS: Heparin Sodium 5,000 Units/ML Vial SUBCUT SCH ×2 (09:27→21:15)
[2017-08-23] MEDS: Multivitamins, Therapeutic with Minerals Tab PO SCH (09:28)
[2017-08-23] MEDS: Aspirin 81 MG Tab.EC PO SCH (09:28)
[2017-08-23] MEDS: amLODIPine 5 MG Tab PO SCH (09:29)
[2017-08-23] MEDS: Acetaminophen 325 MG Tab PO SCH ×2 (09:30→21:14)
[2017-08-23] MEDS: TESTOSTERONE TOP SCH (09:32)
[2017-08-23] MEDS: Zolpidem 5 MG Tab PO PRN (21:14)
[2017-08-23] MEDS: Simvastatin 10 MG Tab PO SCH (21:14)
[2017-08-24] MEDS: Sodium Chloride 0.9% 10 ML Syringe IV PRN ×4 (05:45→21:52)
[2017-08-24] MEDS: ceFAZolin 2 GM in Premix Bag 1 BAG IV SCH ×3 (05:46→21:23)
[2017-08-24] MEDS: Acetaminophen 325 MG Tab PO SCH ×2 (09:07→21:28)
[2017-08-24] MEDS: Allopurinol 300 MG Tab PO SCH (09:09)
[2017-08-24] MEDS: Heparin Sodium 5,000 Units/ML Vial SUBCUT SCH ×2 (09:09→21:30)
[2017-08-24] MEDS: Aspirin 81 MG Tab.EC PO SCH (09:09)
[2017-08-24] MEDS: Multivitamins, Therapeutic with Minerals Tab PO SCH (09:09)
[2017-08-24] MEDS: predniSONE 20 MG Tab PO SCH (09:09)
[2017-08-24] MEDS: amLODIPine 5 MG Tab PO SCH (09:10)
[2017-08-24] MEDS: TESTOSTERONE TOP SCH (09:14)
[2017-08-24] MEDS: Zolpidem 5 MG Tab PO PRN (21:28)
[2017-08-24] MEDS: Simvastatin 10 MG Tab PO SCH (21:29)
[2017-08-25] MEDS: ceFAZolin 2 GM in Premix Bag 1 BAG IV SCH ×3 (05:36→21:17)
[2017-08-25] MEDS: Sodium Chloride 0.9% 10 ML Syringe IV PRN ×4 (05:36→21:53)
[2017-08-25] MEDS: amLODIPine 5 MG Tab PO SCH (08:38)
[2017-08-25] MEDS: Acetaminophen 325 MG Tab PO SCH ×2 (08:39→21:21)
[2017-08-25] MEDS: Heparin Sodium 5,000 Units/ML Vial SUBCUT SCH ×2 (08:40→21:23)
[2017-08-25] MEDS: Multivitamins, Therapeutic with Minerals Tab PO SCH (08:40)
[2017-08-25] MEDS: Aspirin 81 MG Tab.EC PO SCH (08:40)
[2017-08-25] MEDS: Allopurinol 300 MG Tab PO SCH (08:40)
[2017-08-25] MEDS: predniSONE 20 MG Tab PO SCH (08:40)
[2017-08-25] MEDS: TESTOSTERONE TOP SCH (08:42)
[2017-08-25] MEDS: Zolpidem 5 MG Tab PO PRN (21:21)
[2017-08-25] MEDS: Simvastatin 10 MG Tab PO SCH (21:21)
[2017-08-26] MEDS: Sodium Chloride 0.9% 10 ML Syringe IV PRN ×4 (05:26→21:33)
[2017-08-26] MEDS: ceFAZolin 2 GM in Premix Bag 1 BAG IV SCH ×3 (05:26→21:33)
[2017-08-26] MEDS: predniSONE 20 MG Tab PO SCH (08:05)
[2017-08-26] MEDS: Allopurinol 300 MG Tab PO SCH (08:05)
[2017-08-26] MEDS: TESTOSTERONE TOP SCH (10:07)
[2017-08-26] MEDS: amLODIPine 5 MG Tab PO SCH (10:08)
[2017-08-26] MEDS: Aspirin 81 MG Tab.EC PO SCH (10:08)
[2017-08-26] MEDS: Multivitamins, Therapeutic with Minerals Tab PO SCH (10:12)
[2017-08-26] MEDS: Acetaminophen 325 MG Tab PO SCH ×2 (10:12→21:29)
[2017-08-26] MEDS: Heparin Sodium 5,000 Units/ML Vial SUBCUT SCH ×2 (10:13→21:32)
[2017-08-26] MEDS: Zolpidem 5 MG Tab PO PRN (21:30)
[2017-08-26] MEDS: Simvastatin 10 MG Tab PO SCH (21:30)
[2017-08-27] MEDS: Sodium Chloride 0.9% 10 ML Syringe IV PRN ×5 (05:38→22:23)
[2017-08-27] MEDS: ceFAZolin 2 GM in Premix Bag 1 BAG IV SCH ×3 (05:38→21:49)
[2017-08-27] MEDS: Heparin Sodium 5,000 Units/ML Vial SUBCUT SCH ×2 (09:27→21:54)
[2017-08-27] MEDS: Acetaminophen 325 MG Tab PO SCH ×2 (09:28→21:53)
[2017-08-27] MEDS: Multivitamins, Therapeutic with Minerals Tab PO SCH (09:28)
[2017-08-27] MEDS: predniSONE 20 MG Tab PO SCH (09:29)
[2017-08-27] MEDS: Aspirin 81 MG Tab.EC PO SCH (09:30)
[2017-08-27] MEDS: Allopurinol 300 MG Tab PO SCH (09:30)
[2017-08-27] MEDS: amLODIPine 5 MG Tab PO SCH (09:30)
[2017-08-27] MEDS: TESTOSTERONE TOP SCH (09:33)
--- NOTE | 2017-08-27 14:31 | PN ---
DATE: 08/27/2017 SUBJECTIVE: Mr. Altagracia Salgado is a 67-year-old male with medical history significant for hypertension, hyperlipidemia, and peripheral arterial disease, requiring surgical treatment. Initially, had left common femoral endarterectomy with a patch repair on 07/17/2017, this was further complicated with hematoma formation and superinfection with Staphylococcus methicillin-susceptible and had to be readmitted in the month of July to [facility], requiring wound debridement, incision and drainage, and currently placed in the swing bed for continued IV antibiotic. Initially, was on wound VAC placement. He is off the wound VAC, but continues to have a small open wound, requiring daily dressing changes. For the last 24 hours, the patient denies any complaints of chest pain. No shortness of breath. No abdominal pain. No nausea. No vomiting. No diarrhea. The patient denies any trouble in ambulating. He is able to ambulate well. REVIEW OF SYSTEMS: Cardiovascular, respiratory, gastrointestinal, Neurology, constitutional were all evaluated. PHYSICAL EXAMINATION: Vital Signs: Temperature of 98.1, pulse of 54, blood pressure 129/81, respiratory rate of 20, saturating at 99% on room air. General Appearance: Patient is well oriented to time, place, and person. Follows commands spontaneously. Cardiovascular System: S1, S2 heard with normal intensity. No gallops. Respiratory System: Clear to auscultation bilaterally. No wheeze. No crepitations. Abdomen: Soft. Bowel sounds are positive. Nontender. No rigidity. Extremities: No edema in bilateral lower extremities. Neurology: No gross focal neurological deficit. MEDICATIONS: Reviewed. 1. Continue with Tylenol 650 every 4 hours as needed for pain. 2. Allopurinol 300 mg daily. 3. Norvasc 10 mg daily. 4. Aspirin 81 mg daily. 5. Cefazolin 2 g IV q.8 hourly. 6. Heparin 5000 subcu q.12 hourly. 7. Morphine 2 mg IV q.2 hours as needed for pain. 8. Oxycodone 5 mg every 6 hours as needed for pain. 9. Prednisone 20 mg daily with breakfast, tapered down to 10 mg on the 12th. 10.Simvastatin 20 mg at bedtime. LABORATORY DATA: No new labs ordered for today. ASSESSMENT: 1. Left groin wound infection as a result of hematoma from complicated left common femoral artery endarterectomy. 2. Gout noted on this admission, requiring allopurinol and tapered dose of prednisone. 3. Hypertension. 4. Hyperlipidemia. 5. Peripheral arterial disease. PLAN: 1. Wound infection. Patient had extensive wound infection from his left groin and as a complication of left femoral artery endarterectomy, his wound seems to be much improved. He is continued on IV antibiotic with cefazolin, continue the same. Continue with wound care. The patient was evaluated by Dr. Jain, Telemedicine today and I suggested one more week of stay in the swing bed for continued wound cares and continued IV antibiotics. 2. Hypertension. The patient's blood pressure seems to be well controlled. Continue with current treatment plan. 3. Deep venous thrombosis prophylaxis. Continue with heparin for deep venous thrombosis prophylaxis. 4. The patient is encouraged to ambulate around. 5. Gout. The patient was diagnosed with gout on this admission, affecting his left lower leg. He is currently on tapered dose of prednisone and also allopurinol, he is responding well to the treatment, continue the same. [facility] /[id number]
[2017-08-27] MEDS: Simvastatin 10 MG Tab PO SCH (21:52)
[2017-08-27] MEDS: Zolpidem 5 MG Tab PO PRN (22:05)
[2017-08-28] MEDS: Sodium Chloride 0.9% 10 ML Syringe IV PRN ×4 (06:02→21:01)
[2017-08-28] MEDS: ceFAZolin 2 GM in Premix Bag 1 BAG IV SCH ×3 (06:05→21:02)
[2017-08-28] MEDS: Acetaminophen 325 MG Tab PO SCH ×2 (09:10→20:55)
[2017-08-28] MEDS: Multivitamins, Therapeutic with Minerals Tab PO SCH (09:10)
[2017-08-28] MEDS: Aspirin 81 MG Tab.EC PO SCH (09:11)
[2017-08-28] MEDS: predniSONE 20 MG Tab PO SCH (09:11)
[2017-08-28] MEDS: Allopurinol 300 MG Tab PO SCH (09:11)
[2017-08-28] MEDS: amLODIPine 5 MG Tab PO SCH (09:12)
[2017-08-28] MEDS: Heparin Sodium 5,000 Units/ML Vial SUBCUT SCH ×2 (09:13→20:56)
[2017-08-28] MEDS: TESTOSTERONE TOP SCH (09:15)
[2017-08-28] MEDS: [UNRECOGNIZED DRUG - REMARK] TOP SCH (14:40)
[2017-08-28] MEDS: Simvastatin 10 MG Tab PO SCH (20:54)
[2017-08-29] MEDS: Sodium Chloride 0.9% 10 ML Syringe IV PRN ×6 (05:55→21:45)
[2017-08-29] MEDS: ceFAZolin 2 GM in Premix Bag 1 BAG IV SCH ×3 (05:57→21:07)
[2017-08-29] MEDS: Heparin Sodium 5,000 Units/ML Vial SUBCUT SCH ×2 (08:12→20:52)
[2017-08-29] MEDS: amLODIPine 5 MG Tab PO SCH (08:12)
[2017-08-29] MEDS: Aspirin 81 MG Tab.EC PO SCH (08:13)
[2017-08-29] MEDS: Allopurinol 300 MG Tab PO SCH (08:13)
[2017-08-29] MEDS: Acetaminophen 325 MG Tab PO SCH ×2 (08:13→20:49)
[2017-08-29] MEDS: predniSONE 20 MG Tab PO SCH (08:13)
[2017-08-29] MEDS: Multivitamins, Therapeutic with Minerals Tab PO SCH (08:13)
[2017-08-29] MEDS: [UNRECOGNIZED DRUG - REMARK] TOP SCH (08:14)
[2017-08-29] MEDS: TESTOSTERONE TOP SCH (08:15)
[2017-08-29] MEDS ORDERED: predniSONE 10 MG Tab PO SCH (09:00)
[2017-08-29] MEDS: Zolpidem 5 MG Tab PO PRN (20:50)
[2017-08-29] MEDS: Simvastatin 10 MG Tab PO SCH (20:50)
[2017-08-30] MEDS: Sodium Chloride 0.9% 10 ML Syringe IV PRN ×4 (06:15→22:40)
[2017-08-30] MEDS: ceFAZolin 2 GM in Premix Bag 1 BAG IV SCH ×3 (06:18→22:08)
[2017-08-30] MEDS: Aspirin 81 MG Tab.EC PO SCH (09:58)
[2017-08-30] MEDS: Acetaminophen 325 MG Tab PO SCH ×2 (09:59→21:09)
[2017-08-30] MEDS: amLODIPine 5 MG Tab PO SCH (09:59)
[2017-08-30] MEDS: Multivitamins, Therapeutic with Minerals Tab PO SCH (10:00)
[2017-08-30] MEDS: Allopurinol 300 MG Tab PO SCH (10:00)
[2017-08-30] MEDS: predniSONE 10 MG Tab PO SCH (10:01)
[2017-08-30] MEDS: Heparin Sodium 5,000 Units/ML Vial SUBCUT SCH ×2 (10:02→21:08)
[2017-08-30] MEDS: [UNRECOGNIZED DRUG - REMARK] TOP SCH (10:02)
[2017-08-30] MEDS: TESTOSTERONE TOP SCH (10:03)
[2017-08-30] MEDS: Simvastatin 10 MG Tab PO SCH (21:10)
[2017-08-30] MEDS: Zolpidem 5 MG Tab PO PRN (22:07)
[2017-08-31] MEDS: ceFAZolin 2 GM in Premix Bag 1 BAG IV SCH ×3 (05:45→21:34)
[2017-08-31] MEDS: Sodium Chloride 0.9% 10 ML Syringe IV PRN ×2 (05:45→14:20)
[2017-08-31] MEDS: Acetaminophen 325 MG Tab PO SCH ×2 (08:51→21:31)
[2017-08-31] MEDS: Aspirin 81 MG Tab.EC PO SCH (08:51)
[2017-08-31] MEDS: Multivitamins, Therapeutic with Minerals Tab PO SCH (08:52)
[2017-08-31] MEDS: Heparin Sodium 5,000 Units/ML Vial SUBCUT SCH ×2 (08:52→21:30)
[2017-08-31] MEDS: Allopurinol 300 MG Tab PO SCH (08:52)
[2017-08-31] MEDS: amLODIPine 5 MG Tab PO SCH (08:52)
[2017-08-31] MEDS: predniSONE 10 MG Tab PO SCH (08:52)
[2017-08-31] MEDS: TESTOSTERONE TOP SCH (08:53)
[2017-08-31] MEDS: [UNRECOGNIZED DRUG - REMARK] TOP SCH (08:53)
[2017-08-31] MEDS: Simvastatin 10 MG Tab PO SCH (21:33)
[2017-08-31] MEDS: Zolpidem 5 MG Tab PO PRN (21:34)
[2017-09-01] MEDS: ceFAZolin 2 GM in Premix Bag 1 BAG IV SCH ×3 (06:32→21:52)
[2017-09-01] MEDS: Allopurinol 300 MG Tab PO SCH (08:51)
[2017-09-01] MEDS: predniSONE 10 MG Tab PO SCH (08:51)
[2017-09-01] MEDS: amLODIPine 5 MG Tab PO SCH (08:52)
[2017-09-01] MEDS: Aspirin 81 MG Tab.EC PO SCH (08:52)
[2017-09-01] MEDS: Heparin Sodium 5,000 Units/ML Vial SUBCUT SCH ×2 (08:52→21:52)
[2017-09-01] MEDS: Acetaminophen 325 MG Tab PO SCH ×2 (08:53→21:53)
[2017-09-01] MEDS: Multivitamins, Therapeutic with Minerals Tab PO SCH (08:53)
[2017-09-01] MEDS: [UNRECOGNIZED DRUG - REMARK] TOP SCH (08:57)
[2017-09-01] MEDS: TESTOSTERONE TOP SCH (08:57)
[2017-09-01] MEDS: Sodium Chloride 0.9% 10 ML Syringe IV PRN (13:14)
[2017-09-01] MEDS: Simvastatin 10 MG Tab PO SCH (21:51)
[2017-09-01] MEDS: Zolpidem 5 MG Tab PO PRN (21:51)
[2017-09-02] MEDS: ceFAZolin 2 GM in Premix Bag 1 BAG IV SCH ×3 (06:25→21:38)
[2017-09-02] MEDS: Allopurinol 300 MG Tab PO SCH (08:28)
[2017-09-02] MEDS: Aspirin 81 MG Tab.EC PO SCH (08:28)
[2017-09-02] MEDS: predniSONE 10 MG Tab PO SCH (08:28)
[2017-09-02] MEDS: Acetaminophen 325 MG Tab PO SCH ×2 (08:29→20:59)
[2017-09-02] MEDS: Multivitamins, Therapeutic with Minerals Tab PO SCH (08:30)
[2017-09-02] MEDS: amLODIPine 5 MG Tab PO SCH (09:39)
[2017-09-02] MEDS: Heparin Sodium 5,000 Units/ML Vial SUBCUT SCH ×2 (09:41→21:01)
[2017-09-02] MEDS: TESTOSTERONE TOP SCH (09:46)
[2017-09-02] MEDS: [UNRECOGNIZED DRUG - REMARK] TOP SCH (11:07)
[2017-09-02] MEDS: Sodium Chloride 0.9% 10 ML Syringe IV PRN ×2 (14:25→21:38)
[2017-09-02] MEDS: Simvastatin 10 MG Tab PO SCH (21:00)
[2017-09-02] MEDS: Zolpidem 5 MG Tab PO PRN (21:38)
[2017-09-03] MEDS: ceFAZolin 2 GM in Premix Bag 1 BAG IV SCH ×2 (06:03→14:25)
[2017-09-03] MEDS: Aspirin 81 MG Tab.EC PO SCH (08:35)
[2017-09-03] MEDS: Multivitamins, Therapeutic with Minerals Tab PO SCH (08:35)
[2017-09-03] MEDS: Allopurinol 300 MG Tab PO SCH (08:35)
[2017-09-03] MEDS: Acetaminophen 325 MG Tab PO SCH (08:35)
[2017-09-03] MEDS: amLODIPine 5 MG Tab PO SCH (08:35)
[2017-09-03] MEDS: TESTOSTERONE TOP SCH (08:36)
[2017-09-03] MEDS: Heparin Sodium 5,000 Units/ML Vial SUBCUT SCH (08:37)
[2017-09-03] MEDS: [UNRECOGNIZED DRUG - REMARK] TOP SCH (11:43)
[2017-09-03 15:40] VITALS: BP 136/72
--- NOTE | 2017-09-04 04:13 | DISCH ---
DISCHARGE DIAGNOSES: 1. Surgical wound infection following left femoral endarterectomy. 2. Peripheral arterial disease. 3. Admitted for long-term IV antibiotics. 4. Acute gout, left ankle. 5. Anemia, normocytic. 6. Tobacco habituation, in remission. 7. Hypertension by history. 8. Hypogonadism by history. BRIEF HISTORY OF PRESENT ILLNESS: Phil Frias is a 67-year-old male who underwent angiography in early July 2017. At the time of the angiography, the surgeon was unable to enter the left femoral artery because of calcified atherosclerotic material. A direct left endarterectomy was then performed. A hematoma developed at the site. On the day after discharge, Phil noted drainage from the surgical site and then wound infection overlying the surgical site. He returned to see the vascular surgeon, Dr. Moeller. Dr. Moeller sharply debrided the wound and a wound VAC was placed. He was started on IV antibiotics and was admitted to swing bed for further management. PERTINENT LABS AND X-RAYS: Multiple labs were followed over the course of the admission because of the involvement of Infectious Disease. CBCs essentially showed normal white counts. Hemoglobin and hematocrit started at 13 and 39, and at the time of discharge were 12.8 and 39, these values remained relatively stable throughout the visit. Platelets were normal. Sed rate was followed, initially was more than 100 mm/hour, and at the time of discharge head was 26 mm/hour. Renal function remained stable with a GFR of more than 60 throughout the admission. C-reactive protein was 14.7 at the time of admission and was 0.5 at the time of discharge. A tap was done of the left ankle joint. Unfortunately, a cell count was not performed, but crystals were seen negatively. Birefringent, needle-shaped, polarizing crystals were seen within leukocytic inclusions. These crystals resembled monosodium urates. Findings were consistent with acute gout. X-rays were taken of the left ankle at the time of the acute pain and swelling. It showed soft tissue swelling medially with a small ankle joint effusion. There was a large spur at the insertion of the plantar aponeurosis at the base of the os calcis. There was no acute fracture or dislocation of the left ankle. HOSPITAL COURSE: Phil was admitted for ongoing IV antibiotics for the surgical wound infection. He received IV cefazolin 2 g IV every 8 hours. This will be continued as an outpatient until the IV antibiotics were discontinued by Infectious Disease. Subcu heparin was used for VTE prophylaxis. His usual medications were continued. Initially, he was given IV morphine for the acute left ankle pain and he had oxycodone, but he used these very sparingly and has not used any in the last days prior to discharge. On August 02, Phil complained of increasing pain of the left ankle. Over the last 2 days, he had developed bilateral swelling with redness and tenderness. The hospitalist on-call had done uric acid, and this was unremarkable at 4.8. Sed rate was elevated at more than 100 and CRP was 14.7. X-rays were unremarkable. We spoke with the production line operator on-call, and she was good enough to do a tap of the left ankle. Aspirate was sent for crystal analysis. Unfortunately, the cell count and Gram stain were not done. The synovial fluids showed crystals resembling monosodium urates and was consistent with the diagnosis of acute gout. Phil was started on allopurinol with improvement. By the time of discharge, he was up and ambulatory. Daily wound care was performed with the use of a wound VAC, changed on a regular schedule. The wound VAC has now been removed, and the wound is covered with a Mepilex border dressing. Phil was seen today on the day of discharge by Dr. Moeller, who recommended to continue with the border dressing until the wound was completely healed. Infectious Disease will see him on September 05 by Telemedicine, and at that time, we will decide whether or not to continue with the IV antibiotics. He will continue on outpatient IV antibiotic therapy and will return this evening for his last dose of the day and then will come in 3 times a day for the next 2 days for IV cefazolin, and this will continue until orders are changed by Infectious Disease. DISCHARGE MEDICATIONS: 1. Simvastatin 20 mg at bedtime. 2. Amlodipine 10 mg daily. 3. Aspirin EC 81 mg daily. 4. Testosterone (AndroGel) 50 mg applied topically daily. 5. Multivitamin with minerals 1 tablet daily. 6. Allopurinol 300 mg at breakfast. 7. He had been on hydrochlorothiazide and this was discontinued as it may have contributed to gout. ALLERGIES: No known allergies. CONDITION AT THE TIME OF DISCHARGE: Much improved and stable. He was ambulatory without an assistive device. CODE STATUS DURING THIS ADMISSION: Full code. JAMES /[id number]
== END 2017-09-03 16:47 | disposition home or self-care (01) | DRG 863 ==
LOC: DL.MS 12:30
PROVIDERS: ADMIT Internal Medicine; ATTEND Internal Medicine
PROC: 0S9G3ZX Drainage of Left Ankle Joint, Percutaneous Approach, Diagnostic (ICD-10-PCS; principal; 2017-08-02)
DX: T81.4XXA Infection following a procedure, initial encounter (principal); I97.638 Postprocedural hematoma of a circulatory system organ or structure following other circulatory system procedure; Y65.8 Other specified misadventures during surgical and medical care; I10 Essential (primary) hypertension; E78.5 Hyperlipidemia, unspecified; M25.572 Pain in left ankle and joints of left foot; I73.9 Peripheral vascular disease, unspecified; Z72.89 Other problems related to lifestyle; M10.9 Gout, unspecified; D64.9 Anemia, unspecified; E29.1 Testicular hypofunction; Z87.891 Personal history of nicotine dependence
CPT/HCPCS: 36415; 73610-LT; 80048; 82565; 84460; 84550; 85007; 85025; 85048; 85651; 86140; 87040; 87070; 89060; 97161-GP; 97530-GO; 97535-GO; A9270-GY; J0690; J1644; J7050

== ENCOUNTER 2021-02-09 13:34 | Emergency (ER) | payer MEDICARE, MEDICAID ==
[2021-02-09 14:02] VITALS: BP 153/83; PULSE 78
--- NOTE | 2021-02-09 14:05 | EDM.PDOC ---
<GucciErna - Last Filed: 02/09/21 15:48> ED HPI GENERAL MEDICAL PROBLEM - General Chief Complaint: Lower Extremity Injury/Pain Stated Complaint: FALL Time Seen by Provider: 02/09/21 14:03 Source of Information: Reports: Patient History Limitations: Reports: No Limitations - History of Present Illness INITIAL COMMENTS - FREE TEXT/NARRATIVE: Patient is a 70 y.o. male, history of right total hip replacement, who presents to the ED with c/o of right hip and groin pain due to a fall that occurred prior to presenting to the ED. The patient was walking out of a building when he missed the bottom step and fell on his hands and knees at ground level. The patient states he was helped up right away from surrounding bystanders and instantly felt sharp pain in his right hip with ambulation. He states he did not fall directly on his right hip but may have rolled over on his right hip when being helped to his feet. He deneis trauma to the head or loss of consciousness. He denies any pain or tenderness of his knees, ankles or feet. He has no pain in his left hip. He denies numbness or tingling in the lower extremities. No saddle anesthesia or changes in bowel habits. Onset: Today Location: Reports: Lower Extremity, Right (and right hip ) Quality: Reports: Sharp Improves with: Reports: Immobilization Worsens with: Reports: Movement Associated Symptoms: Reports: Weakness (weakness; patient reports he is unable to lift his right leg due to pain) Treatments [employer]: Reports: Other (see below) - Related Data Allergies Allergy/AdvReac Type Severity Reaction Status Date / Time No Known Allergies Allergy Verified 02/09/21 13:52 Home Meds: Home Meds Aspirin [Adult Low Dose Aspirin EC] 81 mg PO DAILY 05/28/17 [History] Multivit-Min/Iron Fum/Folic AC [Ovxrp-Quorhts-Ikdfxxmg Tablet] 1 tab PO DAILY 05/28/17 [History] Simvastatin [Zocor] 20 mg PO BEDTIME 05/28/17 [History] Testosterone [Androgel] 50 mg TOP DAILY 05/28/17 [History] amLODIPine [Norvasc] 10 mg PO DAILY 05/28/17 [History] Allopurinol [Zyloprim] 300 mg PO WITHBREAKFAST #30 tablet 09/03/17 [Rx] Losartan [Cozaar] 50 mg PO DAILY 02/09/21 [History] Meloxicam 15 mg PO DAILY 02/09/21 [History] Past Medical History HEENT History: Reports: None Cardiovascular History: Reports: High Cholesterol, Hypertension Respiratory History: Reports: None Gastrointestinal History: Reports: None Neurological History: Reports: None Psychiatric History: Reports: None Other Psychiatric History: alcohol Endocrine/Metabolic History: Reports: None Hematologic History: Reports: None Immunologic History: Reports: None Dermatologic History: Reports: None - Infectious Disease History Infectious Disease History: Reports: None - Past Surgical History Other Musculoskeletal Surgeries/Procedures:: knee surgery, hip surgery Social & Family History - Family History Family Medical History: Unobtainable - Caffeine Use Caffeine Use: Reports: Coffee Review of Systems - Review of Systems Review Of Systems: See Below Constitutional: Reports: No Symptoms Eyes: Reports: No Symptoms Ears: Reports: No Symptoms Nose: Reports: No Symptoms Mouth/Throat: Reports: No Symptoms Respiratory: Reports: No Symptoms Cardiovascular: Reports: No Symptoms GI/Abdominal: Reports: No Symptoms Genitourinary: Reports: No Symptoms Musculoskeletal: Reports: Joint Pain (right hip pain radiating into the groin. ), Other (Decreased ROM of right hip with weakness at hip. Patient has trouble lifting right leg due to pain.) Skin: Reports: No Symptoms Neurological: Reports: No Symptoms, Difficulty Walking. Denies: Dizziness, Headache, Numbness, Paresthesia Psychiatric: Reports: No Symptoms ED EXAM, GENERAL - Physical Exam Exam: See Below Exam Limited By: No Limitations General Appearance: Alert, WD/WN, No Apparent Distress Eye Exam: Bilateral Eye: EOMI, Normal Inspection Head: Atraumatic, Normocephalic Neck: Normal Inspection, Supple, Non-Tender, Full Range of Motion Respiratory/Chest: No Respiratory Distress, Lungs Clear, Normal Breath Sounds, No Accessory Muscle Use, Chest Non-Tender Cardiovascular: Normal Peripheral Pulses, Regular Rate, Rhythm, No Edema, No Gallop, No JVD, No Murmur, No Rub GI/Abdominal: Normal Bowel Sounds, Soft, Non-Tender, Pelvis Stable (Male) Exam: Deferred Rectal (Males) Exam: Deferred Extremities: No Pedal Edema, Normal Capillary Refill, Limited Range of Motion (Patient is unable to flex right hip due to pain. ), Other (Tenderness over right greater trochanter; pain in the right hip and groin with passive flexion, extension, abduction and adduction.). No: Joint Swelling Neurological: Alert, Oriented, CN II-XII Intact, Normal Cognition, Normal Gait, Normal Reflexes, Other (No sensory deficits. Patient is unable to actively flex right hip due to pain and weakness. Equal strength with dorsal and plantar flexion of the feet.) Psychiatric: Normal Affect, Normal Mood Skin Exam: Warm, Dry, Intact, Normal Color, No Rash. No: Ecchymosis, Erythema Course - Re-Assessments/Exams Free Text/Narrative Re-Assessment/Exam: Hip and pelvic x-rays showed no acute findings. Departure - Departure Time of Disposition: 15:27 Disposition: Home, Self-Care 01 Condition: Fair Clinical Impression: Muscle strain - Discharge Information *PRESCRIPTION DRUG MONITORING PROGRAM REVIEWED*: Not Applicable *COPY OF PRESCRIPTION DRUG MONITORING REPORT IN PATIENT ALVIN: Not Applicable Instructions: Muscle Strain, [id number] Forms: ED Department Discharge Care Plan Goals: -Recommended the patient take tylenol as needed for pain. -Apply ice/heat to right hip and groin for pain and discomfort. -Follow up with primary care facility or ER in 5-7 days if symptoms persist or worsen. <Gigi Orlando - Last Filed: 02/09/21 16:05> Course - Vital Signs Last Recorded V/S: Last Vital Signs Temp 35.7 C L 02/09/21 13:52 Pulse 78 02/09/21 13:52 Resp 20 02/09/21 13:52 BP 153/83 H 02/09/21 13:52 Pulse Ox 97 02/09/21 13:52 - Re-Assessments/Exams Free Text/Narrative Re-Assessment/Exam: 02/09/21 16:05 I have examined the patient. I have discussed findings and treatment plan with the PA student. I agree with the assessment and plan in the following students note. Sepsis Event Note (ED) - Focused Exam Vital Signs: Vital Signs Temp Pulse Resp BP Pulse Ox 02/09/21 13:52 35.7 C L 78 20 153/83 H 97
--- NOTE | 2021-02-09 14:53 | CR ---
EXAMINATION: Hip Min 3V w Pelvis Rt SEX: Male AGE: 70 years CLINICAL HISTORY: 70-year-old male complaining of right hip pain. Total orthopedic hip replacement on the right. Interpretation: 1. Acetabular and proximal femoral components of the total right hip prosthesis satisfactorily "seated" in the bony host. 2. No sign of prosthetic "loosening", inflammatory periostitis, acute fracture or right hip dislocation. 3. Note: Multiple smoothly corticated juxta-articular bone fragment presumably in the hip bursa. 4. Chronic arthritic changes lower lumbar spine particularly on the right. Referred pain? 5. Symmetric spacing normal-appearing SI and contralateral left hip joints. 6. Arteriovascular calcifications proximal femurs (tiny vascular clips in the soft tissues on the left). CONCLUSION: New evidence of total right hip prosthesis since 26 January 2015 comparison exam. Chronic arthritic degenerative changes lower lumbar spine (R>L). No acute fracture or dislocation pelvis or either hip.
== END 2021-02-09 15:47 | disposition home or self-care (01) ==
LOC: DL.ED 13:34
DX: S76.011A Strain of muscle, fascia and tendon of right hip, initial encounter (principal); E78.00 Pure hypercholesterolemia, unspecified; I10 Essential (primary) hypertension; Z79.82 Long term (current) use of aspirin; Z79.899 Other long term (current) drug therapy; W10.9XXA Fall (on) (from) unspecified stairs and steps, initial encounter; Y93.01 Activity, walking, marching and hiking
CPT/HCPCS: 99283

== ENCOUNTER 2021-02-28 09:39 | Inpatient (IN) | payer MEDICARE, MEDICAID ==
[2021-02-28] MEDS ORDERED: oxyCODONE 5 MG Tab PO PRN (14:11)
[2021-02-28] MEDS ORDERED: Ondansetron 4 MG Tab.DIS PO PRN (14:19)
[2021-02-28] MEDS ORDERED: 50% Dextrose in Water 50 ML Syringe IV PRN (14:27)
[2021-02-28] MEDS ORDERED: Glucagon,Human Recombinant 1 MG Vial IM PRN (14:27)
--- NOTE | 2021-02-28 14:27 | PCM.SN.2 ---
- Free Text/Narrative Note: START OF DOCTOR LOLA HISTORY AND PHYSICAL / CONSULTATION NOTE Chief Complaint: Swing bed admission for rehabilitation following right total hip arthroplasty on February 24, 2021 History of Present Illness: The patient is an 70-year-old male who was transferred from outside hospital for admission for rehabilitation following right total hip arthroplasty on February 24, 2021. At the present time the patient offers no complaints. He denies fever, rigors, nausea, vomiting, cough, wheeze, abdominal pain, diarrhea, dyspnea, chest pain. At the present time he denies pain of his right hip but indicates that he does have right hip pain with ambulation. He denies paresthesia anesthesia or myasthenia of the right lower extremity. He states that his last bowel movement was on the morning of February 28, 2021 prior to transfer to this facility. The patient is tolerating p.o. He presents for further evaluation Surgical History: Recent surgery: Right total hip arthroplasty February 24, 2021. Previous urgings: Bilateral cataract surgery, left vascular endarterectomy with femoral embolectomy, right total knee arthroplasty, previous right total hip arthroplasty, right wrist ganglion cyst excision Family History: Coronary artery disease Social History: Tobacco: Former smoker Alcohol: The patient has a history alcohol use however he has been in abstinence since being hospitalized for this injury Caffeine: Coffee Drugs: Past marijuana use. Denies any other drug use past or present Allergies: No known drug allergies Code Status: DNR and DNI Pertinent Laboratory Results / Pertinent Radiology Results / Pertinent Diagnostic Results / Pertinent Vital Signs: Blood pressure 120/75, pulse 98, respiration 18, temperature 9 7 degrees, patient satting 95%. Labs have been ordered and pending Physical Examination: General: -Alert -No acute distress -No dyspnea -No tachypnea Head: -Atraumatic -Normocephalic Eyes: -Pupils equally round and reactive to light and accommodation -Extraocular muscles intact Neurological: -Cranial nerves II-XII intact Neck: -No jugular venous distention -No thyromegaly -No cervical lymphadenopathy Heart: -Regular rate -Regular rhythm -No murmurs -No gallops -No rubs Lungs: -No wheeze -No rhonchi -No rales Abdomen: -Normal bowel sounds in all four quadrants -No rebound -No guarding -No tenderness Extremities: -2/4 pulse in all four extremities -No clubbing -No cyanosis -No edema -No calf tenderness present bilaterally -Negative Homans sign bilaterally Musculoskeletal: -5/5 bilateral upper extremity strength -5/5 bilateral lower extremity strength -Sensorium of bilateral upper extremities are equal and intact -Sensorium of bilateral lower extremities are equal and intact Additional Details / Additional Findings / Exceptions / Miscellaneous: Assessment / Plan: Status post right total hip arthroplasty on February 24, 2021. Patient is scheduled for follow-up with orthopedic surgery on March 14, 2021. We will advance activity as recommended by physical therapy and Occupational Therapy. Will provide as needed analgesia History of alcohol use. Patient currently in abstinence due to his hospitalization Osteoarthritis Hypogonadism Gout. Allopurinol 300 mg p.o. daily Degenerative disc disease Peripheral vascular disease. Zocor 20 mg p.o. nightly Macrocytic anemia. Monitor hemoglobin levels intermittently Diabetes. Will check fasting glucose before every meal and at bedtime and provide insulin scale Hyperlipidemia. Zocor 20 mg p.o. nightly Hypertension. Norvasc 10 mg p.o. daily plus losartan 50 mg p.o. daily DVT prophylaxis. Lovenox 40 mg subcutaneously daily Disposition: Patient scheduled for ultrasound on February 06, 2022 however I am uncertain as to the reason why. The patient will be reminded of this upon discharge END OF DOCTOR EMAMIS HISTORY AND PHYSICAL / CONSULTATION NOTE
[2021-02-28 16:27] LABS: ANION GAP 13.2 mEq/L (7-13); CHLORIDE,CL 98 mmol/L (98-107); SODIUM,NA 136 mmol/L (136-145)
[2021-02-28] MEDS: Insulin Lispro 100 Units/ML 3 ML Vial SUBCUT SCH ×2 (17:24→21:12)
[2021-02-28] MEDS ORDERED: Potassium Chloride 10 MEQ Tab.ER PO ONE ×2 (17:32→21:00)
[2021-02-28] MEDS: Simvastatin 40 MG Tab PO SCH (21:13)
[2021-02-28] MEDS: oxyCODONE 5 MG Tab PO PRN (21:14)
[2021-03-01] MEDS: oxyCODONE 5 MG Tab PO PRN ×2 (08:34→16:42)
[2021-03-01] MEDS: Acetaminophen 325 MG Tab PO PRN (08:36)
[2021-03-01] MEDS: amLODIPine 5 MG Tab PO SCH (08:37)
[2021-03-01] MEDS: Losartan 50 MG Tab PO SCH (08:38)
[2021-03-01] MEDS: Allopurinol 300 MG Tab PO SCH (08:38)
[2021-03-01] MEDS: Enoxaparin 40 MG/0.4 ML Syringe SUBCUT SCH (08:41)
[2021-03-01 10:21] LABS: ANION GAP 13.9 mEq/L (7-13); CHLORIDE,CL 101 mmol/L (98-107); SODIUM,NA 137 mmol/L (136-145)
[2021-03-01] MEDS: Insulin Lispro 100 Units/ML 3 ML Vial SUBCUT SCH ×4 (12:08→21:41)
[2021-03-01] MEDS: Simvastatin 40 MG Tab PO SCH (21:36)
[2021-03-02] MEDS: Acetaminophen 325 MG Tab PO PRN ×2 (08:35→20:37)
[2021-03-02] MEDS: Losartan 50 MG Tab PO SCH (08:36)
[2021-03-02] MEDS: amLODIPine 5 MG Tab PO SCH (08:37)
[2021-03-02] MEDS: Enoxaparin 40 MG/0.4 ML Syringe SUBCUT SCH (08:37)
[2021-03-02] MEDS: Allopurinol 300 MG Tab PO SCH (08:37)
[2021-03-02] MEDS: Insulin Lispro 100 Units/ML 3 ML Vial SUBCUT SCH ×4 (09:18→20:33)
[2021-03-02] MEDS: Simvastatin 40 MG Tab PO SCH (20:31)
[2021-03-03] MEDS: Insulin Lispro 100 Units/ML 3 ML Vial SUBCUT SCH ×4 (08:09→20:50)
[2021-03-03] MEDS: Allopurinol 300 MG Tab PO SCH (08:31)
[2021-03-03] MEDS: amLODIPine 5 MG Tab PO SCH (08:31)
[2021-03-03] MEDS: Losartan 50 MG Tab PO SCH (08:31)
[2021-03-03] MEDS: Enoxaparin 40 MG/0.4 ML Syringe SUBCUT SCH (08:32)
[2021-03-03] MEDS: oxyCODONE 5 MG Tab PO PRN (19:31)
[2021-03-03] MEDS: Simvastatin 40 MG Tab PO SCH (20:46)
[2021-03-04] MEDS: amLODIPine 5 MG Tab PO SCH (10:31)
[2021-03-04] MEDS: Allopurinol 300 MG Tab PO SCH (10:31)
[2021-03-04] MEDS: Losartan 50 MG Tab PO SCH (10:32)
[2021-03-04] MEDS: Enoxaparin 40 MG/0.4 ML Syringe SUBCUT SCH (10:34)
[2021-03-04] MEDS: Insulin Lispro 100 Units/ML 3 ML Vial SUBCUT SCH ×4 (10:35→21:00)
[2021-03-04] MEDS: oxyCODONE 5 MG Tab PO PRN (17:36)
[2021-03-04] MEDS: Simvastatin 40 MG Tab PO SCH (20:08)
[2021-03-05] MEDS: Insulin Lispro 100 Units/ML 3 ML Vial SUBCUT SCH ×4 (08:00→20:13)
[2021-03-05] MEDS: Allopurinol 300 MG Tab PO SCH (08:29)
[2021-03-05] MEDS: amLODIPine 5 MG Tab PO SCH (08:29)
[2021-03-05] MEDS: Losartan 50 MG Tab PO SCH (08:29)
[2021-03-05] MEDS: oxyCODONE 5 MG Tab PO PRN ×2 (08:29→20:12)
[2021-03-05] MEDS: Enoxaparin 40 MG/0.4 ML Syringe SUBCUT SCH (08:30)
[2021-03-05] MEDS: Simvastatin 40 MG Tab PO SCH (20:11)
[2021-03-06] MEDS: Insulin Lispro 100 Units/ML 3 ML Vial SUBCUT SCH ×4 (08:32→21:09)
[2021-03-06] MEDS: Allopurinol 300 MG Tab PO SCH (09:03)
[2021-03-06] MEDS: amLODIPine 5 MG Tab PO SCH (09:04)
[2021-03-06] MEDS: Losartan 50 MG Tab PO SCH (09:04)
[2021-03-06] MEDS: oxyCODONE 5 MG Tab PO PRN ×2 (09:05→21:13)
[2021-03-06] MEDS: Enoxaparin 40 MG/0.4 ML Syringe SUBCUT SCH (09:05)
[2021-03-06] MEDS: Simvastatin 40 MG Tab PO SCH (21:13)
--- NOTE | 2021-03-07 07:54 | PCM.SN.2 ---
- Free Text/Narrative Note: START OF DOCTOR LOLA PROGRESS NOTE Subjective: At the present time the patient offers no complaints. He denies pain of his right hip. He states that he has some degree of pain with ambulation however he does not require frequent analgesic use. The patient has no fever, rigors, nausea, vomiting, cough, wheeze, abdominal pain, dyspnea. The patient indicates that he has been eating well and is having bowel movements on a regular basis. I explained to the patient his current medical condition and plan of care I have answered all of his questions. Objective: General: -Alert -No acute distress -No dyspnea -No tachypnea Heart: -Regular rate -Regular rhythm -No murmurs -No gallops -No rubs Lungs: -No wheeze -No rhonchi -No rales Abdomen: -Normal bowel sounds in all four quadrants -No rebound -No guarding -No tenderness Extremities: -2/4 pulse in all four extremities -No clubbing -No cyanosis -No edema Additional Details / Additional Findings / Exceptions / Miscellaneous: The patient has 5 out of 5 bilateral plantar and dorsiflexion strength. Sensorium of bilateral lower extremities are equal and intact Pertinent Laboratory Results / Pertinent Radiology Results / Pertinent Diagnostic Results / Pertinent Vital Signs: Vital signs stable Assessment / Plan: Status post right total hip arthroplasty on February 24, 2021. Patient is scheduled for follow-up with orthopedic surgery on March 14, 2021. We will advance activity as recommended by physical therapy and Occupational Therapy. Will provide as needed analgesia History of alcohol use. Patient currently in abstinence due to his hospitalization Osteoarthritis Hypogonadism Gout. Allopurinol 300 mg p.o. daily Degenerative disc disease Peripheral vascular disease. Zocor 20 mg p.o. nightly Macrocytic anemia. Monitor hemoglobin levels intermittently Diabetes. Will check fasting glucose before every meal and at bedtime and provide insulin scale Hyperlipidemia. Zocor 20 mg p.o. nightly Hypertension. Norvasc 10 mg p.o. daily plus losartan 50 mg p.o. daily Hypokalemia. Will monitor potassium levels intermittently and supplement as necessary Elevated alkaline phosphatase. We will monitor this periodically. If we see no improvement/resolution, we may consider checking right upper quadrant ultrasound and alkaline phosphatase isoenzymes DVT prophylaxis. Lovenox 40 mg subcutaneously daily Disposition: Patient scheduled for ultrasound on February 06, 2022 however I am uncertain as to the reason why. The patient will be reminded of this upon discharge. Patient is medically stable and will be okay for discharge when deemed appropriate by physical therapy and Occupational Therapy END OF DOCTOR CARLENEMIS PROGRESS NOTE
[2021-03-07] MEDS: Insulin Lispro 100 Units/ML 3 ML Vial SUBCUT SCH ×4 (08:43→20:04)
[2021-03-07] MEDS: Enoxaparin 40 MG/0.4 ML Syringe SUBCUT SCH (08:44)
[2021-03-07] MEDS: Losartan 50 MG Tab PO SCH (08:44)
[2021-03-07] MEDS: Allopurinol 300 MG Tab PO SCH (08:44)
[2021-03-07] MEDS: amLODIPine 5 MG Tab PO SCH (08:45)
[2021-03-07] MEDS: oxyCODONE 5 MG Tab PO PRN ×2 (09:16→20:06)
[2021-03-07] MEDS: Simvastatin 40 MG Tab PO SCH (20:05)
[2021-03-08 06:44] LABS: ANION GAP 14.1 mEq/L (7-13); CHLORIDE,CL 100 mmol/L (98-107); SODIUM,NA 138 mmol/L (136-145)
[2021-03-08] MEDS: Enoxaparin 40 MG/0.4 ML Syringe SUBCUT SCH (08:44)
[2021-03-08] MEDS: Allopurinol 300 MG Tab PO SCH (08:44)
[2021-03-08] MEDS: Losartan 50 MG Tab PO SCH (08:44)
[2021-03-08] MEDS: amLODIPine 5 MG Tab PO SCH (08:45)
[2021-03-08] MEDS: Insulin Lispro 100 Units/ML 3 ML Vial SUBCUT SCH ×4 (08:49→23:36)
[2021-03-08] MEDS: Simvastatin 40 MG Tab PO SCH (20:08)
[2021-03-08] MEDS: oxyCODONE 5 MG Tab PO PRN (20:09)
[2021-03-09] MEDS: Losartan 50 MG Tab PO SCH (08:25)
[2021-03-09] MEDS: oxyCODONE 5 MG Tab PO PRN ×2 (08:25→20:12)
[2021-03-09] MEDS: amLODIPine 5 MG Tab PO SCH (08:25)
[2021-03-09] MEDS: Allopurinol 300 MG Tab PO SCH (08:25)
[2021-03-09] MEDS: Enoxaparin 40 MG/0.4 ML Syringe SUBCUT SCH (08:26)
[2021-03-09] MEDS: Insulin Lispro 100 Units/ML 3 ML Vial SUBCUT SCH ×4 (08:27→20:17)
[2021-03-09] MEDS: Simvastatin 40 MG Tab PO SCH (20:11)
[2021-03-10] MEDS: Losartan 50 MG Tab PO SCH (08:08)
[2021-03-10] MEDS: amLODIPine 5 MG Tab PO SCH (08:08)
[2021-03-10] MEDS: oxyCODONE 5 MG Tab PO PRN ×2 (08:08→20:06)
[2021-03-10] MEDS: Allopurinol 300 MG Tab PO SCH (08:08)
[2021-03-10] MEDS: Enoxaparin 40 MG/0.4 ML Syringe SUBCUT SCH (08:08)
[2021-03-10] MEDS: Insulin Lispro 100 Units/ML 3 ML Vial SUBCUT SCH ×4 (08:09→22:12)
[2021-03-10] MEDS: Simvastatin 40 MG Tab PO SCH (20:05)
[2021-03-11] MEDS: Insulin Lispro 100 Units/ML 3 ML Vial SUBCUT SCH ×4 (08:35→20:36)
[2021-03-11] MEDS: Losartan 50 MG Tab PO SCH (09:15)
[2021-03-11] MEDS: Allopurinol 300 MG Tab PO SCH (09:15)
[2021-03-11] MEDS: Enoxaparin 40 MG/0.4 ML Syringe SUBCUT SCH (09:16)
[2021-03-11] MEDS: oxyCODONE 5 MG Tab PO PRN ×2 (09:16→20:27)
[2021-03-11] MEDS: amLODIPine 5 MG Tab PO SCH (09:16)
[2021-03-11] MEDS: Simvastatin 40 MG Tab PO SCH (20:26)
[2021-03-12] MEDS: Allopurinol 300 MG Tab PO SCH (10:05)
[2021-03-12] MEDS: Losartan 50 MG Tab PO SCH (10:05)
[2021-03-12] MEDS: amLODIPine 5 MG Tab PO SCH (10:05)
[2021-03-12] MEDS: oxyCODONE 5 MG Tab PO PRN ×2 (10:05→20:05)
[2021-03-12] MEDS: Enoxaparin 40 MG/0.4 ML Syringe SUBCUT SCH (10:06)
[2021-03-12] MEDS: Insulin Lispro 100 Units/ML 3 ML Vial SUBCUT SCH (12:13)
[2021-03-12] MEDS: Simvastatin 40 MG Tab PO SCH (20:04)
[2021-03-13] MEDS: oxyCODONE 5 MG Tab PO PRN ×2 (10:46→20:18)
[2021-03-13] MEDS: Allopurinol 300 MG Tab PO SCH (10:47)
[2021-03-13] MEDS: Losartan 50 MG Tab PO SCH (10:48)
[2021-03-13] MEDS: amLODIPine 5 MG Tab PO SCH (10:48)
[2021-03-13] MEDS: Enoxaparin 40 MG/0.4 ML Syringe SUBCUT SCH (10:48)
[2021-03-13] MEDS: Simvastatin 40 MG Tab PO SCH (20:15)
[2021-03-14] MEDS: Allopurinol 300 MG Tab PO SCH (07:52)
[2021-03-14] MEDS: oxyCODONE 5 MG Tab PO PRN ×2 (08:00→20:01)
[2021-03-14] MEDS: amLODIPine 5 MG Tab PO SCH (08:00)
[2021-03-14] MEDS: Losartan 50 MG Tab PO SCH (08:01)
[2021-03-14] MEDS: Enoxaparin 40 MG/0.4 ML Syringe SUBCUT SCH (08:03)
--- NOTE | 2021-03-14 19:32 | PCM.PN ---
- General Info Date of Service: 03/14/21 Admission Dx/Problem (Free Text): Swing Bed - s/p R total hip arthroplasty Subjective Update: Damian is doing well. He is here for swing bed for therapy and nursing assistance, as he is still not cleared for full weightbearing with his right leg. He had a right total hip arthroplasty on 02/24/2021. He is scheduled to see orthopedics today as outpatient, to have his status updated. He is not reporting much in the way of pain, states his pain is well controlled with Tylenol and activity. - Patient Data Vitals - Most Recent: Last Vital Signs Temp 98.3 F 03/14/21 08:08 Pulse 89 03/14/21 08:08 Resp 20 03/14/21 08:08 BP 137/94 H 03/14/21 08:08 Pulse Ox 97 03/14/21 08:08 Weight - Most Recent: 191 lb 6.4 oz I&O - Last 24 Hours: Intake & Output 03/14/21 03/14/21 03/14/21 06:59 14:59 22:59 Intake Total 200 235 Balance 200 235 Med Orders - Current: Current Medications Acetaminophen (Acetaminophen 325 Mg Tab) 650 mg PO Q4H PRN PRN Reason: Pain (Mild 1-3)/fever Last Admin: 03/02/21 20:37 Dose: 650 mg Documented by: Allopurinol (Allopurinol 300 Mg Tab) 300 mg PO PCBREAKFAST PENDING SALE TO [facility] Last Admin: 03/14/21 07:52 Dose: 300 mg Documented by: Amlodipine Besylate (Amlodipine 5 Mg Tab) 10 mg PO DAILY PENDING SALE TO [facility] Last Admin: 03/14/21 08:00 Dose: 10 mg Documented by: Dextrose/Water (50% Dextrose In Water 50 Ml Syringe) 50 ml IV Q15M PRN PRN Reason: Hypoglycemia Enoxaparin Sodium (Enoxaparin 40 Mg/0.4 Ml Syringe) 40 mg SUBCUT DAILY PENDING SALE TO [facility] Last Admin: 03/14/21 08:03 Dose: 40 mg Documented by: Glucagon (Glucagon,Human Recombinant 1 Mg Vial) 1 mg IM Q15M PRN PRN Reason: Hypoglycemia Losartan Potassium (Losartan 50 Mg Tab) 50 mg PO DAILY PENDING SALE TO [facility] Last Admin: 03/14/21 08:01 Dose: 50 mg Documented by: Ondansetron HCl (Ondansetron 4 Mg Tab.Dis) 4 mg PO Q4H PRN PRN Reason: nausea, able to take PO Oxycodone HCl (Oxycodone 5 Mg Tab) 5 mg PO Q6HR PRN PRN Reason: Pain (severe 7-10) Last Admin: 03/14/21 08:00 Dose: 5 mg Documented by: Simvastatin (Simvastatin 40 Mg Tab) 20 mg PO BEDTIME PENDING SALE TO [facility] Last Admin: 03/13/21 20:15 Dose: 20 mg Documented by: Discontinued Medications Insulin Human Lispro (Insulin Lispro 100 Units/Ml 3 Ml Vial) 0 unit SUBCUT WITHMEALSANDBED PENDING SALE TO [facility]; Protocol Last Admin: 03/12/21 12:13 Dose: Not Given Documented by: Potassium Chloride (Potassium Chloride 10 Meq Tab.Er) 40 meq PO ONETIME ONE Stop: 02/28/21 17:33 Last Admin: 02/28/21 17:47 Dose: 40 meq Documented by: Potassium Chloride (Potassium Chloride 10 Meq Tab.Er) 40 meq PO ONETIME ONE Stop: 02/28/21 21:01 Last Admin: 02/28/21 21:13 Dose: 40 meq Documented by: - Exam Physical Findings Comments:: General: Damian is a 70-year-old man in no acute distress Oropharynx is clear, mucous membranes are moist Heart: Regular rate and rhythm, no murmurs I watched him get up from his bed using his walker, he is doing good with only toe-touch with his right leg. Overall seems to be doing well - Patient Data Result Diagrams: 03/08/21 06:00 03/08/21 06:00 Sepsis Event Note - Evaluation Sepsis Screening Result: No Definite Risk - Focused Exam Vital Signs: Vital Signs Temp Pulse Resp BP BP Pulse Ox 03/14/21 08:08 98.3 F 89 20 137/94 H 97 03/14/21 08:01 137/94 H 03/14/21 08:00 137/94 H - Problem List & Annotations (1) S/P total hip arthroplasty SNOMED Code(s): 768960298758, 111409285072 Code(s): Z96.649 - PRESENCE OF UNSPECIFIED ARTIFICIAL HIP JOINT Status: Acute Priority: High Current Visit: Yes Onset Date: ~02/24/21 Qualifiers: Laterality: right Qualified Code(s): Z96.641 - Presence of right artificial hip joint - Problem List Review Problem List Initiated/Reviewed/Updated: Yes - Plan Plan:: Assessment: 1. 70-year-old man, status post right total hip arthroplasty here on swing bed for therapy and fdc care Plan: 1. Orthopedics should be updating his activity instructions today. Will await recommendations of physical and occupational therapy as to when he will be safe for discharge home.
[2021-03-14] MEDS: Simvastatin 40 MG Tab PO SCH (20:01)
[2021-03-15] MEDS: Losartan 50 MG Tab PO SCH (08:27)
[2021-03-15] MEDS: Allopurinol 300 MG Tab PO SCH (08:27)
[2021-03-15] MEDS: amLODIPine 5 MG Tab PO SCH (08:27)
[2021-03-15] MEDS: Enoxaparin 40 MG/0.4 ML Syringe SUBCUT SCH (08:28)
[2021-03-15] MEDS: oxyCODONE 5 MG Tab PO PRN (20:27)
[2021-03-15] MEDS: Simvastatin 40 MG Tab PO SCH (20:27)
[2021-03-16] MEDS: Losartan 50 MG Tab PO SCH (09:16)
[2021-03-16] MEDS: Allopurinol 300 MG Tab PO SCH (09:16)
[2021-03-16] MEDS: amLODIPine 5 MG Tab PO SCH (09:16)
[2021-03-16] MEDS: Enoxaparin 40 MG/0.4 ML Syringe SUBCUT SCH (09:17)
[2021-03-16] MEDS: oxyCODONE 5 MG Tab PO PRN ×2 (09:22→20:24)
[2021-03-16] MEDS: Simvastatin 40 MG Tab PO SCH (20:23)
[2021-03-17] MEDS: Losartan 50 MG Tab PO SCH (08:26)
[2021-03-17] MEDS: oxyCODONE 5 MG Tab PO PRN (08:27)
[2021-03-17] MEDS: amLODIPine 5 MG Tab PO SCH (08:27)
[2021-03-17] MEDS: Allopurinol 300 MG Tab PO SCH (08:27)
[2021-03-17 08:28] VITALS: BP 119/77
[2021-03-17] MEDS: Enoxaparin 40 MG/0.4 ML Syringe SUBCUT SCH (08:28)
[2021-03-17 08:38] VITALS: PULSE 66
--- NOTE | 2021-03-17 09:44 | PCM.DCSUM1 ---
Discharge Summary - Hospital Course Free Text/Narrative:: Damian is a 70-year-old man who has been admitted here in swing bed for physical and occupational therapy after his right hip replacement. He has a previous history of hip replacement, but had to have it revised after a fracture occurred. He has done well with his therapy, he saw orthopedics late last week in clinic, who removed his gerri, removed his bandage, and cleared him to start advancing with more toe touching and limited weightbearing. Per that plan, he is now cleared for discharge home today with further physical and occupational therapy going forward. - Discharge Data Discharge Date: 03/17/21 Discharge Disposition: Home, Self-Care 01 Condition: Good - Referral to Home Health Date of Face to Face Encounter: 03/17/21 Primary Care Physician: Farnaz Caldwell NP - Discharge Diagnosis/Problem(s) (1) S/P total hip arthroplasty SNOMED Code(s): 964456151774, [id number] ICD Code: Z96.649 - PRESENCE OF UNSPECIFIED ARTIFICIAL HIP JOINT Status: Acute Priority: High Onset Date: ~02/24/21 Qualifiers: Laterality: right Qualified Code(s): Z96.641 - Presence of right artificial hip joint - Patient Summary/Data Consults: Consultations 02/28/21 14:19 OT Evaluation and Treatment [CONS] Routine PT Evaluation and Treatment [CONS] Routine - Discharge Plan *PRESCRIPTION DRUG MONITORING PROGRAM REVIEWED*: Not Applicable *COPY OF PRESCRIPTION DRUG MONITORING REPORT IN PATIENT ALVIN: Not Applicable Prescriptions/Med Rec: Acetaminophen [Tylenol Arthritis Pain] 650 mg PO Q8H PRN 30 Days #90 tab.er PRN Reason: Pain Home Medications: Home Meds Simvastatin [Zocor] 20 mg PO BEDTIME 05/28/17 [History] amLODIPine [Norvasc] 10 mg PO DAILY 05/28/17 [History] Allopurinol [Zyloprim] 300 mg PO WITHBREAKFAST #30 tablet 09/03/17 [Rx] Losartan [Cozaar] 50 mg PO DAILY 02/09/21 [History] Potassium Gluconate [Potassium] 99 mg PO BEDTIME 02/28/21 [History] Acetaminophen [Tylenol Arthritis Pain] 650 mg PO Q8H PRN 30 Days #90 tab.er 03/17/21 [Rx] Patient Handouts: Oxycodone tablets or capsules, Acetaminophen biphasic or extended-release tablets, Total Hip Replacement, [id number] Referrals: Farnaz Caldwell NP [Primary Care Provider] - - Discharge Summary/Plan Comment DC Time >30 min.: No Discharge Summary/Plan Comment: Discharge diagnosis: 1. Status post right total hip arthroplasty Discharge plan: He is discharged home today. Orthopedics already has a full plan with him including follow-up. They also prescribed him some oxycodone to be used at home as needed for pain. He will keep his follow-up as scheduled with them. - Patient Data Vitals - Most Recent: Last Vital Signs Temp 98.2 F 03/17/21 08:00 Pulse 66 03/17/21 08:00 Resp 16 03/17/21 08:00 BP 119/77 03/17/21 08:27 Pulse Ox 96 03/17/21 08:00 Weight - Most Recent: 196 lb 8 oz I&O - Last 24 hours: Intake & Output 03/16/21 03/17/21 03/17/21 22:59 06:59 14:59 Intake Total 240 240 Balance 240 240 Med Orders - Current: Current Medications Acetaminophen (Acetaminophen 325 Mg Tab) 650 mg PO Q4H PRN PRN Reason: Pain (Mild 1-3)/fever Last Admin: 03/02/21 20:37 Dose: 650 mg Documented by: Allopurinol (Allopurinol 300 Mg Tab) 300 mg PO PCBREAKFAST [facility] Last Admin: 03/17/21 08:27 Dose: 300 mg Documented by: Amlodipine Besylate (Amlodipine 5 Mg Tab) 10 mg PO DAILY [facility] Last Admin: 03/17/21 08:27 Dose: 10 mg Documented by: Dextrose/Water (50% Dextrose In Water 50 Ml Syringe) 50 ml IV Q15M PRN PRN Reason: Hypoglycemia Enoxaparin Sodium (Enoxaparin 40 Mg/0.4 Ml Syringe) 40 mg SUBCUT DAILY [facility] Last Admin: 03/17/21 08:28 Dose: 40 mg Documented by: Glucagon (Glucagon,Human Recombinant 1 Mg Vial) 1 mg IM Q15M PRN PRN Reason: Hypoglycemia Losartan Potassium (Losartan 50 Mg Tab) 50 mg PO DAILY [facility] Last Admin: 03/17/21 08:26 Dose: 50 mg Documented by: Ondansetron HCl (Ondansetron 4 Mg Tab.Dis) 4 mg PO Q4H PRN PRN Reason: nausea, able to take PO Oxycodone HCl (Oxycodone 5 Mg Tab) 5 mg PO Q6HR PRN PRN Reason: Pain (severe 7-10) Last Admin: 03/17/21 08:27 Dose: 5 mg Documented by: Simvastatin (Simvastatin 40 Mg Tab) 20 mg PO BEDTIME [facility] Last Admin: 03/16/21 20:23 Dose: 20 mg Documented by: Discontinued Medications Insulin Human Lispro (Insulin Lispro 100 Units/Ml 3 Ml Vial) 0 unit SUBCUT WITHMEALSANDBED [facility]; Protocol Last Admin: 03/12/21 12:13 Dose: Not Given Documented by: Potassium Chloride (Potassium Chloride 10 Meq Tab.Er) 40 meq PO ONETIME ONE Stop: 02/28/21 17:33 Last Admin: 02/28/21 17:47 Dose: 40 meq Documented by: Potassium Chloride (Potassium Chloride 10 Meq Tab.Er) 40 meq PO ONETIME ONE Stop: 02/28/21 21:01 Last Admin: 02/28/21 21:13 Dose: 40 meq Documented by:
== END 2021-03-17 13:35 | disposition home or self-care (01) | DRG 561 ==
LOC: DL.MS 12:35
PROVIDERS: ADMIT Internal Medicine; ATTEND Family Medicine
DX: Z47.1 Aftercare following joint replacement surgery (principal); Z96.641 Presence of right artificial hip joint; I25.10 Atherosclerotic heart disease of native coronary artery without angina pectoris; Z66 Do not resuscitate; M19.90 Unspecified osteoarthritis, unspecified site; M10.9 Gout, unspecified; E11.51 Type 2 diabetes mellitus with diabetic peripheral angiopathy without gangrene; E78.5 Hyperlipidemia, unspecified; I10 Essential (primary) hypertension; D53.9 Nutritional anemia, unspecified; R74.8 Abnormal levels of other serum enzymes; E87.6 Hypokalemia; Z87.891 Personal history of nicotine dependence; Z98.41 Cataract extraction status, right eye; Z98.42 Cataract extraction status, left eye; Z28.82 Immunization not carried out because of caregiver refusal
CPT/HCPCS: 36415; 80053; 82947; 82962; 83735; 85025; 97110-GO; 97110-GP; 97116-GP; 97161-GP; 97166-GO; 97530-GO; 97535-GO; A9270-GY; J1650; J1815-GY

== ENCOUNTER 2025-05-17 12:46 | Emergency (ER) | payer MEDICARE, MEDICAID ==
[2025-05-17 12:59] VITALS: BP 149/64; PULSE 96
== END 2025-05-17 15:05 | disposition home or self-care (01) ==
LOC: DL.ED 12:46
DX: M25.531 Pain in right wrist (principal); I10 Essential (primary) hypertension; E78.00 Pure hypercholesterolemia, unspecified; Z79.899 Other long term (current) drug therapy; Z87.891 Personal history of nicotine dependence; W01.0XXA Fall on same level from slipping, tripping and stumbling without subsequent striking against object, initial encounter; Y93.89 Activity, other specified
CPT/HCPCS: 70450; 71046; 73100-RT; 99283; 99284